=== PATIENT | male | born 1955 | race Caucasian/White ===

== ENCOUNTER 2020-07-03 13:57 | Inpatient (IN) | payer BC ==
[2020-07-03 14:47] LABS: Hemoglobin 14.2 g/dL (14.0-18.0); Mean Corpuscular HGB CONC 33.4 g/dL (32.0-36.0); Mean Corpuscular Hemoglobin 29.5 pg (27.0-31.0); Mean Corpuscular Volume 88.5 fL (78.0-98.0); Mean Platelet Volume 6.6 fL (7.4-10.4); Platelet Count 245 thou/uL (130-400); RBC Distribution Width 13.3 % (11.5-14.5); Red Blood Cell (RBC) Count 4.81 mill/uL (4.70-6.10)
[2020-07-03] MEDS ORDERED: Magnesium 2 GM/50 ML BAG (IN WATER) ONE (14:52)
[2020-07-03 14:54] LABS: Lymphocytes 93 % (21-51); MDiff Complete? YES; Monocytes 1 % (0-10); Neutrophil 6 % (42-75); Platelet Morphology Comment Appears Adequate; RBC Morphology Normal; Reflex for Review?? YES
[2020-07-03] MEDS ORDERED: Vancomycin 1 GM/200 ML BAG ONE (15:02)
[2020-07-03 15:07] LABS: ALT (SGPT) 106 U/L (8-55); AST (SGOT) 137 U/L (5-34); Albumin 3.2 g/dL (3.4-4.8); Alkaline Phosphatase 113 U/L (40-110); Anion Gap 16 mmol/L (10-20); BUN (Urea Nitrogen) 24 mg/dL (8.4-25.7); Bilirubin, Total 1.5 mg/dL (0.2-1.2); CK (CPK) 139 U/L (30-200); Calc. Creatinine Clearance 0 mL/min (70-130); Carbon Dioxide 20 mmol/L (23-31); Chloride 98 mmol/L (98-107); Globulin 2.5 g/dL (2.4-3.5); Glucose 130 mg/dL (80-115); Potassium 5.5 mmol/L (3.5-5.1); Protein, Total 5.7 g/dL (5.8-8.1); Sodium 128 mmol/L (136-145)
[2020-07-03 15:20] LABS: CKMB 0.8 ng/mL (0-6.6)
[2020-07-03] MEDS ORDERED: Dexamethasone 10 MG/ML VIAL ONE (15:22)
[2020-07-03] MEDS ORDERED: Melatonin 3 MG TAB PO PRN (15:34)
[2020-07-03] MEDS ORDERED: Piperacillin/Tazobactam 4.5 GM VIAL ONE (15:54)
[2020-07-03] MEDS ORDERED: Acetaminophen 325 MG TAB PO PRN (16:22)
[2020-07-03] MEDS ORDERED: Electrolyte Replacement Protocol 1 EACH FS ONE (16:25)
[2020-07-03] MEDS ORDERED: Electrolyte Replacement Protocol FS PRN (16:30)
[2020-07-03 16:55] LABS: Magnesium 2.9 mg/dL (1.6-2.6); Phosphorus 2.9 mg/dL (2.3-4.7)
[2020-07-03 19:09] LABS: Troponin I 0.041 ng/mL (< 0.028)
[2020-07-03 19:47] LABS: Legionella Urinary Ag Negative (Negative); Strep pneumo Urine Ag NEGATIVE (NEGATIVE)
[2020-07-03] MEDS: Lactated Ringer's 1,000 ML IV SCH (19:53)
[2020-07-03] MEDS: Ascorbic Acid 500 mg Chewable Tablet PO SCH (19:53)
[2020-07-03] MEDS: Thiamine 100 MG TAB PO SCH (21:02)
[2020-07-03] MEDS: Piperacillin/Tazobactam 3.375 GM in Sodium Chloride 0.9% 100 ML IVPB SCH (21:02)
[2020-07-03] MEDS: Albuterol 200 PUFF (6.7GM INHALER) INH SCH (22:11)
[2020-07-04] MEDS: Ascorbic Acid 500 mg Chewable Tablet PO SCH ×6 (00:21→22:59)
[2020-07-04] MEDS: Albuterol 200 PUFF (6.7GM INHALER) INH SCH ×6 (03:42→22:19)
[2020-07-04] MEDS: Piperacillin/Tazobactam 3.375 GM in Sodium Chloride 0.9% 100 ML IVPB SCH ×4 (03:54→21:39)
[2020-07-04 04:08] LABS: Mean Corpuscular HGB CONC 34.8 g/dL (32.0-36.0); Mean Corpuscular Hemoglobin 31.4 pg (27.0-31.0); Mean Corpuscular Volume 90.1 fL (78.0-98.0); Mean Platelet Volume 7.1 fL (7.4-10.4); Platelet Count 226 thou/uL (130-400); RBC Distribution Width 13.5 % (11.5-14.5); Red Blood Cell (RBC) Count 4.47 mill/uL (4.70-6.10)
[2020-07-04 04:19] LABS: ALT (SGPT) 88 U/L (8-55); AST (SGOT) 92 U/L (5-34); Alkaline Phosphatase 101 U/L (40-110); Anion Gap 12 mmol/L (10-20); BUN (Urea Nitrogen) 19 mg/dL (8.4-25.7); Bilirubin, Total 1.2 mg/dL (0.2-1.2); Calc. Creatinine Clearance 141 mL/min (70-130); Calcium 9.3 mg/dL (7.8-10.44); Carbon Dioxide 26 mmol/L (23-31); Chloride 102 mmol/L (98-107); Globulin 2.4 g/dL (2.4-3.5); Glucose 126 mg/dL (80-115); Potassium 4.5 mmol/L (3.5-5.1); Protein, Total 5.4 g/dL (5.8-8.1); Sodium 135 mmol/L (136-145)
[2020-07-04] MEDS: Lactated Ringer's 1,000 ML IV SCH ×3 (04:40→19:36)
[2020-07-04 04:52] LABS: Lymphocytes 99 % (21-51); MDiff Complete? YES; Neutrophil 1 % (42-75); Platelet Morphology Comment Appears Adequate
[2020-07-04] MEDS: Lisinopril 20 MG TAB PO SCH ×2 (08:56→09:33)
[2020-07-04] MEDS: Thiamine 100 MG TAB PO SCH ×2 (08:56→19:49)
[2020-07-04] MEDS: Zinc Sulfate 220 MG CAP PO SCH (08:56)
[2020-07-04] MEDS ORDERED: Prevnar 13-Val Conj/PF 0.5 ML SYRINGE IM ONE (09:00)
[2020-07-04] MEDS ORDERED: Lisinopril/Hydrochlorothiazide 20 mg/12.5 mg Tablet PO SCH (09:00)
[2020-07-04] MEDS ORDERED: Enoxaparin Sodium 40 MG/0.4 ML SYRINGE SC SCH (09:00)
[2020-07-04] MEDS ORDERED: Metoprolol Tartrate 25 MG TAB PO SCH (09:30)
[2020-07-04] MEDS: Ivermectin 3 MG TAB PO SCH (09:32)
[2020-07-04] MEDS: methylPREDNISolone Sod Succ 1 GM in Sodium Chloride 0.9% 250 ML 250 ML IVPB SCH (09:33)
[2020-07-04] MEDS ORDERED: Metoprolol Tartrate 5 MG/5 ML VIAL ONE (13:55)
[2020-07-04] MEDS ORDERED: Propofol 1,000 MG/100 ML VIAL IV ONE (14:15)
[2020-07-04] MEDS ORDERED: Fentanyl 100 MCG/2 ML VIAL SLOW IVP PRN (14:27)
[2020-07-04] MEDS ORDERED: fentaNYL Citrate/PF 2,000 MCG in Sodium Chloride 0.9% 60 ML IV PRN (14:27)
[2020-07-04] MEDS ORDERED: Midazolam HCl 2 mg/2 ml Vial SLOW IVP PRN (14:28)
[2020-07-04] MEDS ORDERED: Metoprolol Tartrate 5 MG/5 ML VIAL IVP SCH (14:37)
[2020-07-04] MEDS ORDERED: Fentanyl CADD 100 ML IV SCH (15:00)
[2020-07-04 15:44] LABS: Actual Bicarbonate (HCO3a) 18.4 mEq/L (22-28); Base Excess (BEa) -11.1 mEq/L (-2.0 to +3.0); CO2 Tension 55.7 mmHg (35.0-45.0); Calcium, Ionized (arterial) 1.27 mmol/L (1.12-1.30); Carboxyhemoglobin (COHb) 0.4 gm% (0.0-3.0); Hemoglobin (Hb) 14.8 g/dL (14.0-18.0); Potassium - ABG Lab 4.59 mmol/L (3.70-5.30)
[2020-07-04 15:45] LABS: O2 Tension (PaO2), arterial 43.1 mmHg (> 80.0); pH, Arterial 7.14 (7.35-7.45)
[2020-07-04 15:46] LABS: ALV-art Gradient 600.275 mmHg (0-20); Puncture Site RRA
[2020-07-04] MEDS ORDERED: Lorazepam 2 MG/ML VIAL ONE (16:11)
[2020-07-04] MEDS ORDERED: Fentanyl BOLUS 250 ML IVPB PRN (16:30)
[2020-07-04] MEDS ORDERED: Propofol BOLUS 1,000 MG/100 ML VIAL IV PRN (16:30)
[2020-07-04] MEDS ORDERED: DISCONTINUE PREVIOUS NARCOTIC PAIN MEDICATIONS AND BENZODIAZEPINES FS SCH (16:30)
[2020-07-04] MEDS ORDERED: Fentanyl CADD 100 ML ONE (17:05)
[2020-07-04 17:08] LABS: Actual Bicarbonate (HCO3a) 20.7 mEq/L (22-28); Calcium, Ionized (arterial) 1.27 mmol/L (1.12-1.30); Carboxyhemoglobin (COHb) 0.2 gm% (0.0-3.0); Hemoglobin (Hb) 15.4 g/dL (14.0-18.0); Potassium - ABG Lab 4.95 mmol/L (3.70-5.30)
[2020-07-04] MEDS: Vecuronium 10 MG VIAL IV PRN ×2 (17:16→21:56)
[2020-07-04 17:37] LABS: O2 Tension (PaO2), arterial 51.9 mmHg (> 80.0); Puncture Site RRA; pH, Arterial 7.16 (7.35-7.45)
[2020-07-04] MEDS ORDERED: ADMIXTURE FEE CHEMO IV SCH (18:15)
[2020-07-04] MEDS ORDERED: SODIUM CHLORIDE 0.9% IV SCH (18:15)
[2020-07-04] MEDS ORDERED: TOCILIZUMAB IV SCH (18:15)
[2020-07-04] MEDS: Propofol 1,000 MG/100 ML VIAL IV PRN (19:48)
[2020-07-04] MEDS: Enoxaparin Sodium 60 MG/0.6 ML SYRINGE SC SCH (19:49)
[2020-07-04] MEDS: Lorazepam 2 MG/ML VIAL SLOW IVP PRN (19:49)
[2020-07-04] MEDS: Metoprolol Tartrate 25 MG TAB PO SCH (20:28)
[2020-07-04] MEDS ORDERED: Lactated Ringer's 1,000 ML IV SCH (21:30)
[2020-07-05] MEDS: Vecuronium 10 MG VIAL IV PRN ×4 (02:38→17:03)
[2020-07-05] MEDS: Piperacillin/Tazobactam 3.375 GM in Sodium Chloride 0.9% 100 ML IVPB SCH ×4 (03:00→20:59)
[2020-07-05 04:39] LABS: ALT (SGPT) 100 U/L (8-55); AST (SGOT) 121 U/L (5-34); Albumin 2.9 g/dL (3.4-4.8); Alkaline Phosphatase 127 U/L (40-110); Anion Gap 20 mmol/L (10-20); BUN (Urea Nitrogen) 38 mg/dL (8.4-25.7); Bilirubin, Total 1.3 mg/dL (0.2-1.2); Calc. Creatinine Clearance 57 mL/min (70-130); Calcium 8.9 mg/dL (7.8-10.44); Carbon Dioxide 21 mmol/L (23-31); Chloride 99 mmol/L (98-107); Globulin 2.6 g/dL (2.4-3.5); Glucose 325 mg/dL (80-115); Potassium 5.5 mmol/L (3.5-5.1); Protein, Total 5.5 g/dL (5.8-8.1); Sodium 134 mmol/L (136-145)
[2020-07-05 04:42] LABS: Band 3 % (5-11); Hemoglobin 11.8 g/dL (14.0-18.0); Lymphocytes 76 % (21-51); MDiff Complete? YES; Mean Corpuscular HGB CONC 25.5 g/dL (32.0-36.0); Mean Corpuscular Hemoglobin 23.7 pg (27.0-31.0); Mean Corpuscular Volume 93.1 fL (78.0-98.0); Mean Platelet Volume 7.1 fL (7.4-10.4); Monocytes 1 % (0-10); Neutrophil 13 % (42-75); Platelet Count 294 thou/uL (130-400); Platelet Morphology Comment Appears Adequate; RBC Distribution Width 14.1 % (11.5-14.5); RBC Morphology Normal; Reactive Lymphocytes 8 % (0-10); Red Blood Cell (RBC) Count 4.97 mill/uL (4.70-6.10)
[2020-07-05] MEDS ORDERED: Dextrose 50% Abboject 50 ML SYRINGE SLOW IVP PRN (04:46)
[2020-07-05] MEDS ORDERED: Dextrose 5% in Water 1,000 ML IV PRN (04:46)
[2020-07-05] MEDS ORDERED: Insulin Regular 300 UNITS/3 ML VIAL SC PRN (04:46)
[2020-07-05] MEDS: HumaLOG 300 UNITS/3 ML VIAL SC PRN ×3 (04:57→18:14)
[2020-07-05] MEDS: Ascorbic Acid 500 mg Chewable Tablet PO SCH ×2 (05:00→11:13)
[2020-07-05] MEDS: Albuterol 200 PUFF (6.7GM INHALER) INH SCH ×6 (07:24→22:05)
[2020-07-05] MEDS: Zinc Sulfate 220 MG CAP PO SCH (08:00)
[2020-07-05] MEDS ORDERED: Sodium Chloride 0.9% 1,000 ML IV SCH ×2 (08:00→19:15)
[2020-07-05] MEDS: Enoxaparin Sodium 60 MG/0.6 ML SYRINGE SC SCH ×2 (08:01→20:44)
[2020-07-05] MEDS: Thiamine 100 MG TAB PO SCH ×2 (08:01→20:44)
[2020-07-05] MEDS: Ivermectin 3 MG TAB PO SCH (08:01)
[2020-07-05] MEDS ORDERED: Hydroxyurea 500 MG CAP PO SCH ×2 (08:45→09:00)
[2020-07-05] MEDS ORDERED: Cholecalciferol 1,000 UNITS (25 MCG) TAB PO SCH (09:00)
[2020-07-05] MEDS: methylPREDNISolone Sod Succ 1 GM in Sodium Chloride 0.9% 250 ML 250 ML IVPB SCH (09:46)
[2020-07-05] MEDS: Propofol 1,000 MG/100 ML VIAL IV PRN (09:46)
[2020-07-05] MEDS: Metoprolol Tartrate 25 MG TAB PO SCH ×2 (09:46→20:46)
[2020-07-05] MEDS: Fentanyl CADD 100 ML IV SCH (11:13)
[2020-07-05] MEDS: Lactated Ringer's 1,000 ML IV SCH ×2 (11:15→14:24)
[2020-07-05] MEDS: Lisinopril 20 MG TAB PO SCH (12:35)
[2020-07-05] MEDS ORDERED: Metoclopramide HCl 10 MG/2 ML VIAL IVP PRN (12:51)
[2020-07-05] MEDS ORDERED: Pantoprazole 40 MG VIAL IVP SCH ×2 (13:30→21:00)
[2020-07-05] MEDS: Sodium Chloride 0.45% 1,000 ML IV SCH (15:20)
[2020-07-05] MEDS: methylPREDNISolone Sod Succ/PF 125 MG in Sodium Chloride 0.9% 250 ML 250 ML IVPB SCH (15:20)
[2020-07-05] MEDS: Lorazepam 2 MG/ML VIAL SLOW IVP PRN ×2 (15:24→22:57)
[2020-07-05] MEDS ORDERED: Norepinephrine 8 MG/0.9% NS 250 ML IVPB SCH (19:15)
[2020-07-05] MEDS: Colchicine 0.6 MG TAB PO SCH (20:45)
[2020-07-06] MEDS: Lorazepam 2 MG/ML VIAL SLOW IVP PRN ×4 (00:42→08:12)
[2020-07-06] MEDS ORDERED: Sterile Water 10 ML ONE (00:58)
[2020-07-06] MEDS: Vecuronium 10 MG VIAL IV PRN ×4 (01:00→20:41)
[2020-07-06] MEDS: Morphine 2 MG/ML VIAL SLOW IVP PRN ×2 (01:00→12:38)
[2020-07-06] MEDS ORDERED: Fentanyl CADD 100 ML ONE ×2 (02:29→17:20)
[2020-07-06] MEDS: Fentanyl CADD 100 ML IV SCH (02:33)
[2020-07-06] MEDS: Albuterol 200 PUFF (6.7GM INHALER) INH SCH ×6 (02:57→22:25)
[2020-07-06] MEDS: Piperacillin/Tazobactam 3.375 GM in Sodium Chloride 0.9% 100 ML IVPB SCH ×4 (03:56→22:00)
[2020-07-06] MEDS: HumaLOG 300 UNITS/3 ML VIAL SC PRN ×4 (04:15→23:16)
[2020-07-06 04:29] LABS: Hemoglobin 13.4 g/dL (14.0-18.0); Mean Corpuscular HGB CONC 33.4 g/dL (32.0-36.0); Mean Corpuscular Hemoglobin 30.2 pg (27.0-31.0); Mean Corpuscular Volume 90.3 fL (78.0-98.0); Platelet Count 247 thou/uL (130-400); RBC Distribution Width 13.7 % (11.5-14.5); Red Blood Cell (RBC) Count 4.43 mill/uL (4.70-6.10)
[2020-07-06 04:51] LABS: ALT (SGPT) 72 U/L (8-55); AST (SGOT) 65 U/L (5-34); Albumin 2.4 g/dL (3.4-4.8); Alkaline Phosphatase 91 U/L (40-110); Anion Gap 19 mmol/L (10-20); BUN (Urea Nitrogen) 65 mg/dL (8.4-25.7); Bilirubin, Total 0.9 mg/dL (0.2-1.2); Calc. Creatinine Clearance 51 mL/min (70-130); Calcium 7.5 mg/dL (7.8-10.44); Carbon Dioxide 15 mmol/L (23-31); Chloride 104 mmol/L (98-107); Globulin 2.3 g/dL (2.4-3.5); Glucose 226 mg/dL (80-115); Potassium 4.3 mmol/L (3.5-5.1); Protein, Total 4.7 g/dL (5.8-8.1); Sodium 134 mmol/L (136-145)
[2020-07-06 05:06] LABS: Lymphocytes 93 % (21-51); MDiff Complete? YES; Neutrophil 7 % (42-75); Platelet Morphology Comment Appears Adequate
[2020-07-06] MEDS: Pantoprazole 40 MG VIAL IVP SCH (08:12)
[2020-07-06] MEDS: Metoprolol Tartrate 25 MG TAB PO SCH ×2 (08:12→20:39)
[2020-07-06] MEDS: Enoxaparin Sodium 60 MG/0.6 ML SYRINGE SC SCH ×2 (08:12→20:39)
[2020-07-06] MEDS: Thiamine 100 MG TAB PO SCH ×2 (08:13→20:39)
[2020-07-06] MEDS: Colchicine 0.6 MG TAB PO SCH ×2 (08:13→20:39)
[2020-07-06] MEDS: Zinc Sulfate 220 MG CAP PO SCH (08:13)
[2020-07-06] MEDS ORDERED: Hydroxyurea 500 MG CAP PO SCH ×2 (08:45→09:00)
[2020-07-06] MEDS: Propofol 1,000 MG/100 ML VIAL IV PRN ×2 (09:20→20:57)
[2020-07-06] MEDS: Sodium Chloride 0.45% 1,000 ML IV SCH (09:43)
[2020-07-06] MEDS: Lactated Ringer's 1,000 ML IV SCH (14:37)
[2020-07-06] MEDS: methylPREDNISolone Sod Succ/PF 125 MG in Sodium Chloride 0.9% 250 ML 250 ML IVPB SCH (18:33)
[2020-07-07] MEDS: Albuterol 200 PUFF (6.7GM INHALER) INH SCH ×6 (01:08→23:15)
[2020-07-07] MEDS: Vecuronium 10 MG VIAL IV PRN ×5 (01:25→23:20)
[2020-07-07] MEDS: Propofol 1,000 MG/100 ML VIAL IV PRN (02:06)
[2020-07-07] MEDS: Piperacillin/Tazobactam 3.375 GM in Sodium Chloride 0.9% 100 ML IVPB SCH ×4 (04:17→21:26)
[2020-07-07 05:24] LABS: ALT (SGPT) 57 U/L (8-55); AST (SGOT) 46 U/L (5-34); Albumin 2.7 g/dL (3.4-4.8); Alkaline Phosphatase 97 U/L (40-110); Anion Gap 16 mmol/L (10-20); BUN (Urea Nitrogen) 90 mg/dL (8.4-25.7); Bilirubin, Total 0.9 mg/dL (0.2-1.2); Calc. Creatinine Clearance 44 mL/min (70-130); Calcium 8.3 mg/dL (7.8-10.44); Carbon Dioxide 19 mmol/L (23-31); Chloride 106 mmol/L (98-107); Globulin 2.3 g/dL (2.4-3.5); Glucose 232 mg/dL (80-115); Potassium 4.3 mmol/L (3.5-5.1); Sodium 137 mmol/L (136-145)
[2020-07-07 05:25] LABS: Band 1 % (5-11); Hemoglobin 13.8 g/dL (14.0-18.0); Hypochromia SLIGHT = 6-15 cells (100X) (0-5/hpf); Lymphocytes 79 % (21-51); MDiff Complete? YES; Mean Corpuscular HGB CONC 33.1 g/dL (32.0-36.0); Mean Corpuscular Hemoglobin 29.6 pg (27.0-31.0); Mean Corpuscular Volume 89.2 fL (78.0-98.0); Mean Platelet Volume 7.5 fL (7.4-10.4); Monocytes 3 % (0-10); Neutrophil 16 % (42-75); Platelet Count 315 thou/uL (130-400); Platelet Morphology Comment Appears Adequate; RBC Distribution Width 13.6 % (11.5-14.5); Reactive Lymphocytes 1 % (0-10); Red Blood Cell (RBC) Count 4.68 mill/uL (4.70-6.10)
[2020-07-07] MEDS: HumaLOG 300 UNITS/3 ML VIAL SC PRN ×3 (05:47→18:27)
[2020-07-07 08:24] LABS: Actual Bicarbonate (HCO3a) 16.8 mEq/L (22-28); CO2 Tension 29.5 mmHg (35.0-45.0); Carboxyhemoglobin (COHb) 0.3 gm% (0.0-3.0); Hemoglobin (Hb) 14.2 g/dL (14.0-18.0); Potassium - ABG Lab 4.42 mmol/L (3.70-5.30); pH, Arterial 7.37 (7.35-7.45)
[2020-07-07 08:26] LABS: ALV-art Gradient 189.425 mmHg (0-20); O2 Tension (PaO2), arterial 58.9 mmHg (> 80.0); Puncture Site RRA
[2020-07-07] MEDS: Zinc Sulfate 220 MG CAP PO SCH (08:37)
[2020-07-07] MEDS: Thiamine 100 MG TAB PO SCH ×2 (08:37→21:28)
[2020-07-07] MEDS: Colchicine 0.6 MG TAB PO SCH (08:37)
[2020-07-07] MEDS: Metoprolol Tartrate 25 MG TAB PO SCH ×2 (08:37→21:28)
[2020-07-07] MEDS: Enoxaparin Sodium 60 MG/0.6 ML SYRINGE SC SCH ×2 (08:37→21:28)
[2020-07-07] MEDS: Pantoprazole 40 MG VIAL IVP SCH (08:39)
[2020-07-07] MEDS ORDERED: Hydroxyurea 500 MG CAP PO SCH (09:00)
[2020-07-07 09:33] LABS: Hemoglobin A1c 3.1 % (4.0-6.0)
[2020-07-07] MEDS: Hydroxyurea 500 MG CAP PO SCH ×2 (09:52→21:29)
[2020-07-07] MEDS: Diltiazem 125 MG in Sodium Chloride 0.9% 100 ML IVPB SCH ×2 (09:53→20:28)
[2020-07-07] MEDS: Lactated Ringer's 1,000 ML IV SCH ×2 (09:53→15:40)
[2020-07-07] MEDS ORDERED: Metoprolol Tartrate 5 MG/5 ML VIAL IVP SCH (10:30)
[2020-07-07] MEDS: Lorazepam 2 MG/ML VIAL SLOW IVP PRN ×3 (10:36→14:31)
[2020-07-07] MEDS ORDERED: Fentanyl CADD 100 ML ONE (12:17)
[2020-07-07] MEDS: NPH, Human Insulin Isophane 300 UNIT/3 ML VIAL SC SCH ×2 (12:49→21:25)
[2020-07-07 13:24] LABS: Bilirubin Negative (Negative); Blood, Urine 3+ (Negative); Clarity Turbid (Clear); Glucose, Urine (Dipstick) Normal (Negative); Ketone, Urine Negative (Negative); Leukocyte Negative Leu/uL (Negative); Nitrite Negative (Negative); Protein, Urine (Dipstick) 20 mg/dL (Neg-Trace); RBC/HPF Greater than 50 HPF (0-3); Squamous Epithelial None Seen HPF (0-3); Urobilinogen Normal mg/dL (Less than 2); WBC/HPF 0-3 HPF (0-3); pH, Urine 5.5 (5.0-9.0)
[2020-07-07 13:35] LABS: Bacteria/HPF Rare-Few HPF (None Seen)
[2020-07-07 13:41] LABS: Urine Culture Reflex No No
[2020-07-07] MEDS ORDERED: Albumin 25% 25 GM/100 ML BOT IVPB SCH (13:45)
[2020-07-07 14:06] LABS: Creatinine, Urine 62.69 mg/dL (63-166)
[2020-07-07] MEDS: methylPREDNISolone Sod Succ/PF 125 MG in Sodium Chloride 0.9% 250 ML 250 ML IVPB SCH (20:27)
[2020-07-07] MEDS: Fentanyl CADD 100 ML IV SCH (23:20)
[2020-07-08] MEDS: Vecuronium 10 MG VIAL IV PRN ×3 (00:34→23:10)
[2020-07-08] MEDS: HumaLOG 300 UNITS/3 ML VIAL SC PRN ×4 (01:38→22:08)
[2020-07-08] MEDS: Albuterol 200 PUFF (6.7GM INHALER) INH SCH ×6 (02:40→23:12)
[2020-07-08] MEDS: Piperacillin/Tazobactam 3.375 GM in Sodium Chloride 0.9% 100 ML IVPB SCH ×4 (03:22→21:31)
[2020-07-08 04:56] LABS: Mean Corpuscular HGB CONC 27.3 g/dL (32.0-36.0); Mean Corpuscular Hemoglobin 25.1 pg (27.0-31.0); Mean Platelet Volume 7.2 fL (7.4-10.4); Platelet Count 305 thou/uL (130-400); RBC Distribution Width 14.1 % (11.5-14.5); Red Blood Cell (RBC) Count 4.39 mill/uL (4.70-6.10)
[2020-07-08 05:01] LABS: ALT (SGPT) 49 U/L (8-55); AST (SGOT) 49 U/L (5-34); Albumin 3.1 g/dL (3.4-4.8); Alkaline Phosphatase 83 U/L (40-110); Anion Gap 13 mmol/L (10-20); BUN (Urea Nitrogen) 102 mg/dL (8.4-25.7); Bilirubin, Total 0.8 mg/dL (0.2-1.2); Calc. Creatinine Clearance 49 mL/min (70-130); Calcium 8.8 mg/dL (7.8-10.44); Carbon Dioxide 24 mmol/L (23-31); Chloride 107 mmol/L (98-107); Globulin 1.9 g/dL (2.4-3.5); Glucose 204 mg/dL (80-115); Potassium 5.2 mmol/L (3.5-5.1); Sodium 139 mmol/L (136-145)
[2020-07-08 05:28] LABS: Lymphocytes 95 % (21-51); MDiff Complete? YES; Monocytes 1 % (0-10); Neutrophil 4 % (42-75); Platelet Morphology Comment Appears Adequate
[2020-07-08] MEDS: Diltiazem 125 MG in Sodium Chloride 0.9% 100 ML IVPB SCH (09:38)
[2020-07-08] MEDS: Zinc Sulfate 220 MG CAP PO SCH (09:39)
[2020-07-08] MEDS: NPH, Human Insulin Isophane 300 UNIT/3 ML VIAL SC SCH ×2 (09:40→22:37)
[2020-07-08] MEDS: Pantoprazole 40 MG VIAL IVP SCH (09:40)
[2020-07-08] MEDS: Metoprolol Tartrate 25 MG TAB PO SCH ×2 (09:40→21:30)
[2020-07-08] MEDS: Thiamine 100 MG TAB PO SCH ×2 (09:40→21:30)
[2020-07-08] MEDS: Enoxaparin Sodium 60 MG/0.6 ML SYRINGE SC SCH ×2 (09:40→21:29)
[2020-07-08] MEDS: Hydroxyurea 500 MG CAP PO SCH ×2 (09:41→21:31)
[2020-07-08] MEDS: Lactated Ringer's 1,000 ML IV SCH (09:41)
[2020-07-08] MEDS ORDERED: Lactated Ringer's 1,000 ML IV SCH (10:21)
[2020-07-08 10:35] LABS: Actual Bicarbonate (HCO3a) 21.1 mEq/L (22-28); Base Excess (BEa) -9.1 mEq/L (-2.0 to +3.0); Carboxyhemoglobin (COHb) 0.3 gm% (0.0-3.0); Hemoglobin (Hb) 12.9 g/dL (14.0-18.0); Potassium - ABG Lab 5.57 mmol/L (3.70-5.30)
[2020-07-08 10:39] LABS: O2 Tension (PaO2), arterial 55.5 mmHg (> 80.0); pH, Arterial 7.12 (7.35-7.45)
[2020-07-08 10:40] LABS: Puncture Site RRA
[2020-07-08] MEDS ORDERED: Fentanyl CADD 100 ML ONE ×2 (10:43→22:25)
[2020-07-08 11:43] LABS: Reference Lab Name KARIUS
[2020-07-08] MEDS ORDERED: Furosemide 40 MG/4 ML VIAL IVP SCH (15:39)
[2020-07-08] MEDS: methylPREDNISolone Sod Succ/PF 125 MG in Sodium Chloride 0.9% 250 ML 250 ML IVPB SCH (16:00)
[2020-07-08] MEDS: Lorazepam 2 MG/ML VIAL SLOW IVP PRN (22:55)
[2020-07-09] MEDS: Albuterol 200 PUFF (6.7GM INHALER) INH SCH ×6 (03:45→23:45)
[2020-07-09] MEDS: Piperacillin/Tazobactam 3.375 GM in Sodium Chloride 0.9% 100 ML IVPB SCH ×2 (04:56→10:48)
[2020-07-09] MEDS: HumaLOG 300 UNITS/3 ML VIAL SC PRN ×4 (04:56→21:56)
[2020-07-09 05:41] LABS: ALT (SGPT) 57 U/L (8-55); AST (SGOT) 55 U/L (5-34); Albumin 2.7 g/dL (3.4-4.8); Alkaline Phosphatase 79 U/L (40-110); Anion Gap 14 mmol/L (10-20); Bilirubin, Total 0.7 mg/dL (0.2-1.2); CK (CPK) 127 U/L (30-200); Calc. Creatinine Clearance 40 mL/min (70-130); Calcium 8.5 mg/dL (7.8-10.44); Carbon Dioxide 23 mmol/L (23-31); Chloride 110 mmol/L (98-107); Globulin 1.7 g/dL (2.4-3.5); Glucose 194 mg/dL (80-115); Potassium 5.1 mmol/L (3.5-5.1); Protein, Total 4.4 g/dL (5.8-8.1); Sodium 142 mmol/L (136-145)
[2020-07-09 05:53] LABS: BUN (Urea Nitrogen) 121 mg/dL (8.4-25.7)
[2020-07-09 06:02] LABS: Lymphocytes 92 % (21-51); MDiff Complete? YES; Mean Corpuscular HGB CONC 34.3 g/dL (32.0-36.0); Mean Corpuscular Volume 90.4 fL (78.0-98.0); Mean Platelet Volume 7.7 fL (7.4-10.4); Neutrophil 8 % (42-75); Platelet Count 249 thou/uL (130-400); Red Blood Cell (RBC) Count 3.86 mill/uL (4.70-6.10)
[2020-07-09] MEDS: Hydroxyurea 500 MG CAP PO SCH (08:12)
[2020-07-09] MEDS: Metoprolol Tartrate 25 MG TAB PO SCH ×2 (08:13→21:35)
[2020-07-09] MEDS: Sodium Chloride 0.9% (PF) 10 ML VIAL FS PRN (08:13)
[2020-07-09] MEDS: Pantoprazole 40 MG VIAL IVP SCH (08:13)
[2020-07-09] MEDS: Enoxaparin Sodium 60 MG/0.6 ML SYRINGE SC SCH (08:13)
[2020-07-09] MEDS: Zinc Sulfate 220 MG CAP PO SCH (08:13)
[2020-07-09] MEDS: Thiamine 100 MG TAB PO SCH ×2 (08:13→21:36)
[2020-07-09] MEDS: NPH, Human Insulin Isophane 300 UNIT/3 ML VIAL SC SCH ×2 (08:14→21:38)
[2020-07-09] MEDS: Vecuronium 10 MG VIAL IV PRN ×3 (08:19→19:14)
[2020-07-09] MEDS ORDERED: Fentanyl CADD 100 ML ONE ×2 (09:05→19:05)
[2020-07-09] MEDS: Morphine 2 MG/ML VIAL SLOW IVP PRN (10:48)
[2020-07-09] MEDS: Propofol 1,000 MG/100 ML VIAL IV PRN ×2 (11:51→19:14)
[2020-07-09] MEDS: Lorazepam 2 MG/ML VIAL SLOW IVP PRN (11:52)
[2020-07-09] MEDS: Piperacillin/Tazobactam 2.25 GM in Sodium Chloride 0.9% 100 ML IVPB SCH ×2 (16:08→21:36)
[2020-07-09] MEDS: methylPREDNISolone Sod Succ/PF 125 MG in Sodium Chloride 0.9% 250 ML 250 ML IVPB SCH (19:08)
[2020-07-10] MEDS: Lorazepam 2 MG/ML VIAL SLOW IVP PRN ×3 (00:19→07:20)
[2020-07-10] MEDS: Piperacillin/Tazobactam 2.25 GM in Sodium Chloride 0.9% 100 ML IVPB SCH ×4 (03:41→21:38)
[2020-07-10] MEDS: Albuterol 200 PUFF (6.7GM INHALER) INH SCH ×6 (03:47→22:34)
[2020-07-10] MEDS: HumaLOG 300 UNITS/3 ML VIAL SC PRN ×3 (04:07→16:04)
[2020-07-10] MEDS: Vecuronium 10 MG VIAL IV PRN ×3 (04:46→15:03)
[2020-07-10] MEDS ORDERED: Fentanyl CADD 100 ML ONE ×3 (04:55→23:43)
[2020-07-10 05:19] LABS: ALT (SGPT) 52 U/L (8-55); AST (SGOT) 40 U/L (5-34); Albumin 2.6 g/dL (3.4-4.8); Alkaline Phosphatase 79 U/L (40-110); Anion Gap 14 mmol/L (10-20); Bilirubin, Total 0.7 mg/dL (0.2-1.2); Calc. Creatinine Clearance 0 mL/min (70-130); Calcium 8.7 mg/dL (7.8-10.44); Carbon Dioxide 23 mmol/L (23-31); Chloride 111 mmol/L (98-107); Globulin 1.7 g/dL (2.4-3.5); Glucose 196 mg/dL (80-115); Potassium 4.7 mmol/L (3.5-5.1); Protein, Total 4.3 g/dL (5.8-8.1); Sodium 143 mmol/L (136-145)
[2020-07-10 05:30] LABS: BUN (Urea Nitrogen) 138 mg/dL (8.4-25.7)
[2020-07-10 05:38] LABS: Hemoglobin 10.8 g/dL (14.0-18.0); Lymphocytes 93 % (21-51); MDiff Complete? YES; Mean Corpuscular HGB CONC 32.9 g/dL (32.0-36.0); Mean Corpuscular Hemoglobin 29.4 pg (27.0-31.0); Mean Corpuscular Volume 89.5 fL (78.0-98.0); Mean Platelet Volume 7.8 fL (7.4-10.4); Neutrophil 7 % (42-75); Platelet Count 203 thou/uL (130-400); RBC Distribution Width 13.4 % (11.5-14.5); Red Blood Cell (RBC) Count 3.67 mill/uL (4.70-6.10)
[2020-07-10] MEDS: Sodium Chloride 0.9% (PF) 10 ML VIAL FS PRN (08:06)
[2020-07-10] MEDS: Pantoprazole 40 MG VIAL IVP SCH (08:06)
[2020-07-10] MEDS: Enoxaparin Sodium 60 MG/0.6 ML SYRINGE SC SCH (08:06)
[2020-07-10] MEDS: Hydroxyurea 500 MG CAP PO SCH (08:07)
[2020-07-10] MEDS: Thiamine 100 MG TAB PO SCH ×2 (08:07→19:52)
[2020-07-10] MEDS: Metoprolol Tartrate 25 MG TAB PO SCH ×3 (08:07→20:30)
[2020-07-10] MEDS: Lorazepam 1 MG TAB PER TUBE SCH ×5 (08:07→23:56)
[2020-07-10] MEDS: NPH, Human Insulin Isophane 300 UNIT/3 ML VIAL SC SCH ×2 (08:09→19:52)
[2020-07-10] MEDS: Zinc Sulfate 220 MG CAP PO SCH (08:30)
[2020-07-10] MEDS: Propofol 1,000 MG/100 ML VIAL IV PRN ×2 (16:51→22:26)
[2020-07-10] MEDS: methylPREDNISolone Sod Succ/PF 125 MG in Sodium Chloride 0.9% 250 ML 250 ML IVPB SCH (19:53)
[2020-07-10] MEDS: Fentanyl CADD 100 ML IV SCH (23:56)
[2020-07-11] MEDS: Propofol 1,000 MG/100 ML VIAL IV PRN ×4 (01:39→14:30)
[2020-07-11] MEDS: Lorazepam 2 MG/ML VIAL SLOW IVP PRN (02:31)
[2020-07-11] MEDS: Vecuronium 10 MG VIAL IV PRN ×3 (02:31→15:24)
[2020-07-11] MEDS: Albuterol 200 PUFF (6.7GM INHALER) INH SCH ×6 (03:03→22:51)
[2020-07-11] MEDS: Piperacillin/Tazobactam 2.25 GM in Sodium Chloride 0.9% 100 ML IVPB SCH ×4 (04:15→21:15)
[2020-07-11] MEDS: Lorazepam 1 MG TAB PER TUBE SCH ×5 (04:15→21:04)
[2020-07-11 05:35] LABS: Hemoglobin 10.1 g/dL (14.0-18.0); Mean Corpuscular HGB CONC 32.6 g/dL (32.0-36.0); Mean Corpuscular Hemoglobin 29.7 pg (27.0-31.0); Mean Corpuscular Volume 90.9 fL (78.0-98.0); Mean Platelet Volume 8.1 fL (7.4-10.4); Platelet Count 188 thou/uL (130-400); RBC Distribution Width 13.3 % (11.5-14.5); Red Blood Cell (RBC) Count 3.42 mill/uL (4.70-6.10)
[2020-07-11 05:48] LABS: ALT (SGPT) 42 U/L (8-55); AST (SGOT) 26 U/L (5-34); Albumin 2.6 g/dL (3.4-4.8); Alkaline Phosphatase 76 U/L (40-110); Anion Gap 13 mmol/L (10-20); Bilirubin, Total 0.6 mg/dL (0.2-1.2); Calc. Creatinine Clearance 0 mL/min (70-130); Calcium 8.9 mg/dL (7.8-10.44); Carbon Dioxide 23 mmol/L (23-31); Chloride 114 mmol/L (98-107); Globulin 1.5 g/dL (2.4-3.5); Glucose 205 mg/dL (80-115); Potassium 5.2 mmol/L (3.5-5.1); Protein, Total 4.1 g/dL (5.8-8.1); Sodium 145 mmol/L (136-145)
[2020-07-11 05:59] LABS: BUN (Urea Nitrogen) 162 mg/dL (8.4-25.7)
[2020-07-11 06:27] LABS: Phosphorus 6.5 mg/dL (2.3-4.7)
[2020-07-11 06:29] LABS: Uric Acid 10.3 mg/dL (3.5-7.2)
[2020-07-11 07:13] LABS: Actual Bicarbonate (HCO3a) 19.2 mEq/L (22-28); Base Excess (BEa) -6.6 mEq/L (-2.0 to +3.0); CO2 Tension 39.7 mmHg (35.0-45.0); Calcium, Ionized (arterial) 1.33 mmol/L (1.12-1.30); Hemoglobin (Hb) 11.2 g/dL (14.0-18.0); O2 Tension (PaO2), arterial 75.2 mmHg (> 80.0); Potassium - ABG Lab 4.91 mmol/L (3.70-5.30)
[2020-07-11 07:30] LABS: Puncture Site RRA
[2020-07-11 07:31] LABS: ALV-art Gradient 338.625 mmHg (0-20)
[2020-07-11 07:36] LABS: Band 1 % (5-11); Lymphocytes 91 % (21-51); MDiff Complete? YES; Neutrophil 8 % (42-75)
[2020-07-11] MEDS: Enoxaparin Sodium 60 MG/0.6 ML SYRINGE SC SCH (08:12)
[2020-07-11] MEDS: Sodium Chloride 0.9% (PF) 10 ML VIAL FS PRN (08:12)
[2020-07-11] MEDS: Pantoprazole 40 MG VIAL IVP SCH (08:12)
[2020-07-11] MEDS: NPH, Human Insulin Isophane 300 UNIT/3 ML VIAL SC SCH ×2 (08:13→21:05)
[2020-07-11] MEDS: Zinc Sulfate 220 MG CAP PO SCH (08:14)
[2020-07-11] MEDS: Metoprolol Tartrate 25 MG TAB PO SCH ×2 (08:14→20:30)
[2020-07-11] MEDS: Thiamine 100 MG TAB PO SCH ×2 (08:14→21:04)
[2020-07-11] MEDS: Hydroxyurea 500 MG CAP PO SCH (08:14)
[2020-07-11] MEDS ORDERED: Fentanyl CADD 100 ML ONE ×2 (09:38→19:54)
[2020-07-11] MEDS: HumaLOG 300 UNITS/3 ML VIAL SC PRN ×2 (10:01→16:20)
[2020-07-11] MEDS ORDERED: Heparin 10,000 UNITS/ 10 ML VIAL ONE (11:00)
[2020-07-11 13:39] LABS: Creatinine, Urine 57.19 mg/dL (63-166)
[2020-07-11 15:52] LABS: HBSAg Index 0.16 S/CO (0-0.99); Hep B Surf Ag Non-Reactive S/CO (NonReactive)
[2020-07-11] MEDS: methylPREDNISolone Sod Succ/PF 125 MG in Sodium Chloride 0.9% 250 ML 250 ML IVPB SCH (19:57)
[2020-07-12] MEDS: Propofol 1,000 MG/100 ML VIAL IV PRN ×6 (00:29→22:58)
[2020-07-12] MEDS: Lorazepam 1 MG TAB PER TUBE SCH ×7 (00:29→23:34)
[2020-07-12] MEDS: Vecuronium 10 MG VIAL IV PRN ×3 (01:50→06:49)
[2020-07-12] MEDS: Albuterol 200 PUFF (6.7GM INHALER) INH SCH ×6 (03:06→23:17)
[2020-07-12] MEDS: Piperacillin/Tazobactam 2.25 GM in Sodium Chloride 0.9% 100 ML IVPB SCH ×4 (03:22→21:23)
[2020-07-12 04:28] LABS: ALT (SGPT) 38 U/L (8-55); AST (SGOT) 23 U/L (5-34); Albumin 2.6 g/dL (3.4-4.8); Alkaline Phosphatase 66 U/L (40-110); Anion Gap 16 mmol/L (10-20); Bilirubin, Total 0.7 mg/dL (0.2-1.2); Calc. Creatinine Clearance 0 mL/min (70-130); Calcium 8.8 mg/dL (7.8-10.44); Carbon Dioxide 23 mmol/L (23-31); Chloride 108 mmol/L (98-107); Globulin 1.7 g/dL (2.4-3.5); Glucose 190 mg/dL (80-115); Potassium 4.9 mmol/L (3.5-5.1); Protein, Total 4.3 g/dL (5.8-8.1); Sodium 142 mmol/L (136-145)
[2020-07-12 04:40] LABS: BUN (Urea Nitrogen) 143 mg/dL (8.4-25.7)
[2020-07-12] MEDS: Lorazepam 2 MG/ML VIAL SLOW IVP PRN ×2 (04:48→16:32)
[2020-07-12 04:50] LABS: Lymphocytes 91 % (21-51); MDiff Complete? YES; Mean Corpuscular HGB CONC 32.1 g/dL (32.0-36.0); Mean Corpuscular Hemoglobin 28.8 pg (27.0-31.0); Mean Corpuscular Volume 89.7 fL (78.0-98.0); Mean Platelet Volume 8.1 fL (7.4-10.4); Neutrophil 9 % (42-75); Platelet Count 182 thou/uL (130-400); RBC Distribution Width 13.2 % (11.5-14.5); Red Blood Cell (RBC) Count 3.45 mill/uL (4.70-6.10)
[2020-07-12] MEDS ORDERED: Fentanyl CADD 100 ML ONE ×2 (05:12→15:00)
[2020-07-12] MEDS: Fentanyl CADD 100 ML IV SCH (05:14)
[2020-07-12] MEDS: HumaLOG 300 UNITS/3 ML VIAL SC PRN ×2 (06:12→16:46)
[2020-07-12 07:49] LABS: Actual Bicarbonate (HCO3a) 19.6 mEq/L (22-28); Base Excess (BEa) -5.4 mEq/L (-2.0 to +3.0); CO2 Tension 36.4 mmHg (35.0-45.0); Calcium, Ionized (arterial) 1.28 mmol/L (1.12-1.30); Carboxyhemoglobin (COHb) 0.6 gm% (0.0-3.0); Hemoglobin (Hb) 11.1 g/dL (14.0-18.0); O2 Tension (PaO2), arterial 74.1 mmHg (> 80.0); Potassium - ABG Lab 4.79 mmol/L (3.70-5.30); pH, Arterial 7.35 (7.35-7.45)
[2020-07-12 07:52] LABS: Puncture Site RBA
[2020-07-12] MEDS ORDERED: Sodium Bicarb 50 MEQ/50 ML Abboject 8.4% SYRINGE IVP SCH (09:45)
[2020-07-12] MEDS: Hydroxyurea 500 MG CAP PO SCH (10:30)
[2020-07-12] MEDS ORDERED: Enoxaparin Sodium 60 MG/0.6 ML SYRINGE SC SCH (10:30)
[2020-07-12] MEDS: Metoprolol Tartrate 25 MG TAB PO SCH ×2 (10:31→10:41)
[2020-07-12] MEDS: Zinc Sulfate 220 MG CAP PO SCH (10:31)
[2020-07-12] MEDS: Thiamine 100 MG TAB PO SCH ×2 (10:31→21:21)
[2020-07-12] MEDS: Pantoprazole 40 MG VIAL IVP SCH (10:32)
[2020-07-12] MEDS: NPH, Human Insulin Isophane 300 UNIT/3 ML VIAL SC SCH ×2 (10:32→21:21)
[2020-07-12] MEDS ORDERED: Heparin 10,000 UNITS/ 10 ML VIAL ONE (10:35)
[2020-07-12] MEDS ORDERED: Albumin 5% 250 ML ONE ×2 (10:37→11:41)
[2020-07-12] MEDS: Enoxaparin Sodium 60 MG/0.6 ML SYRINGE SC SCH (10:40)
[2020-07-12 14:02] LABS: Phosphorus 6.2 mg/dL (2.3-4.7); Uric Acid 8.3 mg/dL (3.5-7.2)
[2020-07-12] MEDS: Sodium Chloride 0.45% 1,000 ML IV SCH ×2 (16:30→21:21)
[2020-07-12] MEDS: methylPREDNISolone Sod Succ/PF 125 MG in Sodium Chloride 0.9% 250 ML 250 ML IVPB SCH (23:26)
[2020-07-13] MEDS ORDERED: Fentanyl CADD 100 ML ONE ×3 (01:10→20:46)
[2020-07-13] MEDS: Fentanyl CADD 100 ML IV SCH ×3 (01:13→20:53)
[2020-07-13] MEDS: Albuterol 200 PUFF (6.7GM INHALER) INH SCH ×6 (02:38→22:06)
[2020-07-13] MEDS: Lorazepam 1 MG TAB PER TUBE SCH ×5 (03:47→21:32)
[2020-07-13] MEDS: Piperacillin/Tazobactam 2.25 GM in Sodium Chloride 0.9% 100 ML IVPB SCH ×2 (03:47→09:12)
[2020-07-13] MEDS: Propofol 1,000 MG/100 ML VIAL IV PRN ×5 (03:52→21:29)
[2020-07-13 04:35] LABS: Mean Corpuscular HGB CONC 31.2 g/dL (32.0-36.0); Mean Corpuscular Hemoglobin 27.7 pg (27.0-31.0); Mean Corpuscular Volume 88.9 fL (78.0-98.0); Platelet Count 147 thou/uL (130-400); RBC Distribution Width 12.7 % (11.5-14.5); Red Blood Cell (RBC) Count 3.23 mill/uL (4.70-6.10)
[2020-07-13 04:48] LABS: ALT (SGPT) 30 U/L (8-55); AST (SGOT) 21 U/L (5-34); Albumin 2.9 g/dL (3.4-4.8); Alkaline Phosphatase 55 U/L (40-110); Anion Gap 15 mmol/L (10-20); Calc. Creatinine Clearance 57 mL/min (70-130); Calcium 8.5 mg/dL (7.8-10.44); Carbon Dioxide 26 mmol/L (23-31); Chloride 104 mmol/L (98-107); Globulin 1.4 g/dL (2.4-3.5); Glucose 129 mg/dL (80-115); Potassium 4.2 mmol/L (3.5-5.1); Protein, Total 4.3 g/dL (5.8-8.1); Sodium 141 mmol/L (136-145); Uric Acid 6.3 mg/dL (3.5-7.2)
[2020-07-13 05:01] LABS: Lymphocytes 90 % (21-51); MDiff Complete? YES; Monocytes 2 % (0-10); Neutrophil 8 % (42-75)
[2020-07-13 05:02] LABS: BUN (Urea Nitrogen) 119 mg/dL (8.4-25.7)
[2020-07-13] MEDS: Sodium Chloride 0.45% 1,000 ML IV SCH ×2 (06:39→16:57)
[2020-07-13 06:56] LABS: Actual Bicarbonate (HCO3a) 24.9 mEq/L (22-28); Base Excess (BEa) 1.4 mEq/L (-2.0 to +3.0); CO2 Tension 35.2 mmHg (35.0-45.0); Calcium, Ionized (arterial) 1.19 mmol/L (1.12-1.30); Carboxyhemoglobin (COHb) 0.3 gm% (0.0-3.0); Hemoglobin (Hb) 9.8 g/dL (14.0-18.0); O2 Tension (PaO2), arterial 84.3 mmHg (> 80.0); Potassium - ABG Lab 4.11 mmol/L (3.70-5.30); pH, Arterial 7.47 (7.35-7.45)
[2020-07-13 07:00] LABS: Puncture Site RRA
[2020-07-13] MEDS ORDERED: Heparin 10,000 UNITS/ 10 ML VIAL ONE (08:45)
[2020-07-13] MEDS ORDERED: Albumin 5% 500 ML ONE ×2 (08:50)
[2020-07-13] MEDS: Pantoprazole 40 MG VIAL IVP SCH (08:54)
[2020-07-13] MEDS: Zinc Sulfate 220 MG CAP PO SCH (08:54)
[2020-07-13] MEDS: Thiamine 100 MG TAB PO SCH ×2 (08:54→21:29)
[2020-07-13] MEDS: Hydroxyurea 500 MG CAP PO SCH (08:55)
[2020-07-13] MEDS: Enoxaparin Sodium 60 MG/0.6 ML SYRINGE SC SCH (08:55)
[2020-07-13] MEDS: Metoprolol Tartrate 25 MG TAB PO SCH ×2 (08:57→23:50)
[2020-07-13] MEDS: NPH, Human Insulin Isophane 300 UNIT/3 ML VIAL SC SCH ×2 (08:58→23:50)
[2020-07-13] MEDS ORDERED: Albumin 25% 25 GM/100 ML BOT IVPB SCH (11:15)
[2020-07-13] MEDS: Piperacillin/Tazobactam 3.375 GM in Sodium Chloride 0.9% 100 ML IVPB SCH ×2 (17:00→21:27)
[2020-07-13] MEDS: Vecuronium 10 MG VIAL IV PRN (20:34)
[2020-07-13] MEDS: methylPREDNISolone Sod Succ/PF 125 MG in Sodium Chloride 0.9% 250 ML 250 ML IVPB SCH (22:43)
[2020-07-14] MEDS: Lorazepam 1 MG TAB PER TUBE SCH ×7 (00:33→19:34)
[2020-07-14] MEDS: Albuterol 200 PUFF (6.7GM INHALER) INH SCH ×6 (02:10→22:49)
[2020-07-14] MEDS: Vecuronium 10 MG VIAL IV PRN ×2 (04:50→16:36)
[2020-07-14 04:55] LABS: ALT (SGPT) 24 U/L (8-55); AST (SGOT) 23 U/L (5-34); Albumin 3.2 g/dL (3.4-4.8); Alkaline Phosphatase 56 U/L (40-110); Anion Gap 14 mmol/L (10-20); BUN (Urea Nitrogen) 82 mg/dL (8.4-25.7); Bilirubin, Total 1.3 mg/dL (0.2-1.2); Calc. Creatinine Clearance 81 mL/min (70-130); Calcium 8.9 mg/dL (7.8-10.44); Carbon Dioxide 26 mmol/L (23-31); Chloride 103 mmol/L (98-107); Globulin 1.4 g/dL (2.4-3.5); Glucose 143 mg/dL (80-115); Potassium 3.8 mmol/L (3.5-5.1); Protein, Total 4.6 g/dL (5.8-8.1); Sodium 139 mmol/L (136-145)
[2020-07-14 05:20] LABS: Eosinophils 1 % (0-10); Hemoglobin 9.2 g/dL (14.0-18.0); Lymphocytes 92 % (21-51); MDiff Complete? YES; Mean Corpuscular HGB CONC 32.2 g/dL (32.0-36.0); Mean Corpuscular Hemoglobin 28.4 pg (27.0-31.0); Mean Corpuscular Volume 88.3 fL (78.0-98.0); Monocytes 3 % (0-10); Neutrophil 4 % (42-75); Platelet Count 122 thou/uL (130-400); RBC Distribution Width 12.4 % (11.5-14.5); Red Blood Cell (RBC) Count 3.23 mill/uL (4.70-6.10); White Blood Cell (WBC) Count 95.8 thou/uL (4.8-10.8)
[2020-07-14] MEDS: Piperacillin/Tazobactam 3.375 GM in Sodium Chloride 0.9% 100 ML IVPB SCH ×4 (05:28→23:01)
[2020-07-14] MEDS ORDERED: Fentanyl CADD 100 ML ONE ×2 (06:42→18:39)
[2020-07-14] MEDS: Fentanyl CADD 100 ML IV SCH (07:02)
[2020-07-14 08:29] LABS: Actual Bicarbonate (HCO3a) 23.6 mEq/L (22-28); Base Excess (BEa) 2.7 mEq/L (-2.0 to +3.0); Calcium, Ionized (arterial) 1.19 mmol/L (1.12-1.30); Carboxyhemoglobin (COHb) 0.3 gm% (0.0-3.0); Hemoglobin (Hb) 10.5 g/dL (14.0-18.0); O2 Tension (PaO2), arterial 84.5 mmHg (> 80.0); Potassium - ABG Lab 3.72 mmol/L (3.70-5.30)
[2020-07-14] MEDS ORDERED: Heparin 10,000 UNITS/ 10 ML VIAL ONE (08:34)
[2020-07-14] MEDS: Zinc Sulfate 220 MG CAP PO SCH (08:42)
[2020-07-14] MEDS: Enoxaparin Sodium 60 MG/0.6 ML SYRINGE SC SCH (08:42)
[2020-07-14] MEDS: Pantoprazole 40 MG GRANULES PACKET PER TUBE SCH (08:42)
[2020-07-14] MEDS: Hydroxyurea 500 MG CAP PO SCH (08:42)
[2020-07-14] MEDS: Colchicine 0.6 MG TAB PO SCH (08:42)
[2020-07-14] MEDS: Thiamine 100 MG TAB PO SCH ×2 (08:42→21:17)
[2020-07-14 08:52] LABS: Puncture Site RRA; pH, Arterial 7.59 (7.35-7.45)
[2020-07-14] MEDS: NPH, Human Insulin Isophane 300 UNIT/3 ML VIAL SC SCH ×2 (10:24→21:20)
[2020-07-14 16:16] LABS: Actual Bicarbonate (HCO3a) 23.5 mEq/L (22-28); Base Excess (BEa) -1.4 mEq/L (-2.0 to +3.0); CO2 Tension 40.5 mmHg (35.0-45.0); Calcium, Ionized (arterial) 1.24 mmol/L (1.12-1.30); Carboxyhemoglobin (COHb) 0.6 gm% (0.0-3.0); Hemoglobin (Hb) 12.1 g/dL (14.0-18.0); O2 Tension (PaO2), arterial 188.4 mmHg (> 80.0); Potassium - ABG Lab 4.01 mmol/L (3.70-5.30); pH, Arterial 7.38 (7.35-7.45)
[2020-07-14 16:19] LABS: ALV-art Gradient 473.975 mmHg (0-20); Puncture Site RRA
[2020-07-14 18:29] LABS: ALT (SGPT) 27 U/L (8-55); AST (SGOT) 39 U/L (5-34); Albumin 3.5 g/dL (3.4-4.8); Alkaline Phosphatase 83 U/L (40-110); Anion Gap 14 mmol/L (10-20); BUN (Urea Nitrogen) 81 mg/dL (8.4-25.7); Calc. Creatinine Clearance 79 mL/min (70-130); Calcium 9.4 mg/dL (7.8-10.44); Carbon Dioxide 28 mmol/L (23-31); Chloride 105 mmol/L (98-107); Globulin 1.6 g/dL (2.4-3.5); Glucose 150 mg/dL (80-115); Potassium 4.2 mmol/L (3.5-5.1); Protein, Total 5.1 g/dL (5.8-8.1); Sodium 143 mmol/L (136-145)
[2020-07-14 18:50] LABS: CKMB 1.9 ng/mL (0-6.6)
[2020-07-14] MEDS ORDERED: Norepinephrine 8 MG/0.9% NS 250 ML IVPB PRN (19:26)
[2020-07-14] MEDS: methylPREDNISolone Sod Succ/PF 125 MG in Sodium Chloride 0.9% 250 ML 250 ML IVPB SCH (23:55)
[2020-07-15] MEDS: Lorazepam 1 MG TAB PER TUBE SCH ×7 (00:04→23:45)
[2020-07-15] MEDS: Albuterol 200 PUFF (6.7GM INHALER) INH SCH ×6 (03:13→21:39)
[2020-07-15 05:10] LABS: ALT (SGPT) 29 U/L (8-55); AST (SGOT) 44 U/L (5-34); Albumin 3.5 g/dL (3.4-4.8); Alkaline Phosphatase 82 U/L (40-110); Anion Gap 12 mmol/L (10-20); BUN (Urea Nitrogen) 53 mg/dL (8.4-25.7); Bilirubin, Total 1.5 mg/dL (0.2-1.2); Calc. Creatinine Clearance 102 mL/min (70-130); Calcium 9.3 mg/dL (7.8-10.44); Carbon Dioxide 30 mmol/L (23-31); Chloride 104 mmol/L (98-107); Globulin 1.6 g/dL (2.4-3.5); Glucose 118 mg/dL (80-115); Potassium 3.9 mmol/L (3.5-5.1); Protein, Total 5.1 g/dL (5.8-8.1); Sodium 142 mmol/L (136-145)
[2020-07-15 05:12] LABS: Hemoglobin 10.8 g/dL (14.0-18.0); Mean Corpuscular HGB CONC 32.4 g/dL (32.0-36.0); Mean Corpuscular Hemoglobin 29.1 pg (27.0-31.0); Mean Corpuscular Volume 89.8 fL (78.0-98.0); Mean Platelet Volume 7.3 fL (7.4-10.4); Platelet Count 161 thou/uL (130-400); RBC Distribution Width 12.8 % (11.5-14.5)
[2020-07-15] MEDS: Piperacillin/Tazobactam 3.375 GM in Sodium Chloride 0.9% 100 ML IVPB SCH ×4 (05:16→20:46)
[2020-07-15 06:39] LABS: Band 1 % (5-11); Lymphocytes 86 % (21-51); MDiff Complete? YES; Monocytes 1 % (0-10); Neutrophil 12 % (42-75); Platelet Morphology Comment Appears Adequate
[2020-07-15] MEDS ORDERED: Furosemide 100 MG/10 ML VIAL SLOW IVP SCH (06:45)
[2020-07-15] MEDS ORDERED: Fentanyl CADD 100 ML ONE ×2 (06:55→20:15)
[2020-07-15 07:07] LABS: Actual Bicarbonate (HCO3a) 25.9 mEq/L (22-28); Base Excess (BEa) 2.2 mEq/L (-2.0 to +3.0); Calcium, Ionized (arterial) 1.24 mmol/L (1.12-1.30); Carboxyhemoglobin (COHb) 0.3 gm% (0.0-3.0); Hemoglobin (Hb) 11.1 g/dL (14.0-18.0); O2 Tension (PaO2), arterial 98.6 mmHg (> 80.0); Potassium - ABG Lab 3.78 mmol/L (3.70-5.30); pH, Arterial 7.46 (7.35-7.45)
[2020-07-15 07:09] LABS: Puncture Site RBA
[2020-07-15] MEDS: Furosemide 100 MG in Sodium Chloride 0.9% 90 ML IVPB SCH ×2 (07:23→16:15)
[2020-07-15 10:20] LABS: Phosphorus 3.9 mg/dL (2.3-4.7); Uric Acid 2.7 mg/dL (3.5-7.2)
[2020-07-15] MEDS: NPH, Human Insulin Isophane 300 UNIT/3 ML VIAL SC SCH ×2 (10:44→21:55)
[2020-07-15] MEDS: Enoxaparin Sodium 60 MG/0.6 ML SYRINGE SC SCH (10:45)
[2020-07-15] MEDS: Pantoprazole 40 MG GRANULES PACKET PER TUBE SCH (10:46)
[2020-07-15] MEDS: Colchicine 0.6 MG TAB PO SCH (10:46)
[2020-07-15] MEDS: Thiamine 100 MG TAB PO SCH ×2 (10:46→20:48)
[2020-07-15] MEDS: Metoprolol Tartrate 25 MG TAB PO SCH ×2 (10:46→20:48)
[2020-07-15] MEDS: Hydroxyurea 500 MG CAP PO SCH (10:46)
[2020-07-15] MEDS: Zinc Sulfate 220 MG CAP PO SCH (10:46)
[2020-07-15] MEDS: Fentanyl CADD 100 ML IV SCH (20:17)
[2020-07-15] MEDS: Vecuronium 10 MG VIAL IV PRN ×4 (20:43→23:45)
[2020-07-15] MEDS: methylPREDNISolone Sod Succ/PF 125 MG in Sodium Chloride 0.9% 250 ML 250 ML IVPB SCH (21:48)
[2020-07-16] MEDS: Vecuronium 10 MG VIAL IV PRN ×5 (01:23→17:40)
[2020-07-16] MEDS: Furosemide 100 MG in Sodium Chloride 0.9% 90 ML IVPB SCH ×3 (01:52→22:11)
[2020-07-16] MEDS: Albuterol 200 PUFF (6.7GM INHALER) INH SCH ×6 (01:52→22:44)
[2020-07-16] MEDS: Piperacillin/Tazobactam 3.375 GM in Sodium Chloride 0.9% 100 ML IVPB SCH ×4 (02:43→22:13)
[2020-07-16] MEDS: Lorazepam 1 MG TAB PER TUBE SCH ×5 (02:43→22:13)
[2020-07-16 04:24] LABS: Mean Corpuscular HGB CONC 31.9 g/dL (32.0-36.0); Mean Corpuscular Hemoglobin 28.6 pg (27.0-31.0); Mean Corpuscular Volume 89.7 fL (78.0-98.0); Mean Platelet Volume 7.7 fL (7.4-10.4); Platelet Count 124 thou/uL (130-400); RBC Distribution Width 12.8 % (11.5-14.5); Red Blood Cell (RBC) Count 3.51 mill/uL (4.70-6.10)
[2020-07-16 04:25] LABS: ALT (SGPT) 32 U/L (8-55); AST (SGOT) 36 U/L (5-34); Albumin 3.3 g/dL (3.4-4.8); Alkaline Phosphatase 80 U/L (40-110); Anion Gap 15 mmol/L (10-20); BUN (Urea Nitrogen) 69 mg/dL (8.4-25.7); Bilirubin, Total 1.8 mg/dL (0.2-1.2); Calc. Creatinine Clearance 79 mL/min (70-130); Carbon Dioxide 29 mmol/L (23-31); Chloride 102 mmol/L (98-107); Globulin 1.7 g/dL (2.4-3.5); Glucose 130 mg/dL (80-115); Hypochromia SLIGHT = 6-15 cells (100X) (0-5/hpf); Lymphocytes 71 % (21-51); MDiff Complete? YES; Monocytes 1 % (0-10); Neutrophil 28 % (42-75); Platelet Morphology Comment Appears Adequate; Potassium 3.3 mmol/L (3.5-5.1); Sodium 143 mmol/L (136-145)
[2020-07-16] MEDS ORDERED: Fentanyl CADD 100 ML ONE ×2 (05:07→15:25)
[2020-07-16] MEDS ORDERED: Potassium Chloride 20 MEQ TAB PO SCH (05:15)
[2020-07-16 06:44] LABS: Actual Bicarbonate (HCO3a) 26.8 mEq/L (22-28); Base Excess (BEa) 4.7 mEq/L (-2.0 to +3.0); CO2 Tension 31.8 mmHg (35.0-45.0); Calcium, Ionized (arterial) 1.24 mmol/L (1.12-1.30); Carboxyhemoglobin (COHb) 0.2 gm% (0.0-3.0); Hemoglobin (Hb) 12.2 g/dL (14.0-18.0); Potassium - ABG Lab 3.49 mmol/L (3.70-5.30); pH, Arterial 7.54 (7.35-7.45)
[2020-07-16 06:54] LABS: O2 Tension (PaO2), arterial 55.9 mmHg (> 80.0); Puncture Site RRA
[2020-07-16] MEDS: Hydroxyurea 500 MG CAP PO SCH (08:29)
[2020-07-16] MEDS: Metoprolol Tartrate 25 MG TAB PO SCH ×2 (08:30→22:13)
[2020-07-16] MEDS: Zinc Sulfate 220 MG CAP PO SCH (08:30)
[2020-07-16] MEDS: Thiamine 100 MG TAB PO SCH ×2 (08:30→22:20)
[2020-07-16] MEDS: Enoxaparin Sodium 60 MG/0.6 ML SYRINGE SC SCH (08:31)
[2020-07-16] MEDS: Colchicine 0.6 MG TAB PO SCH (08:32)
[2020-07-16] MEDS: Pantoprazole 40 MG GRANULES PACKET PER TUBE SCH (08:32)
[2020-07-16] MEDS: Haloperidol Lactate 5 MG/ML VIAL IM SCH ×2 (09:41→10:13)
[2020-07-16] MEDS: NPH, Human Insulin Isophane 300 UNIT/3 ML VIAL SC SCH ×2 (09:42→22:30)
[2020-07-16] MEDS ORDERED: Ziprasidone 20 MG VIAL IM SCH (10:00)
[2020-07-16] MEDS ORDERED: Sterile Water 10 ML VIAL FS SCH (10:00)
[2020-07-16] MEDS: methylPREDNISolone Sod Succ/PF 125 MG in Sodium Chloride 0.9% 250 ML 250 ML IVPB SCH (22:11)
[2020-07-16] MEDS: Potassium Chloride 20 MEQ TAB PO SCH (22:13)
[2020-07-16] MEDS: Ziprasidone 20 MG VIAL IM SCH (22:13)
[2020-07-16] MEDS: Sterile Water 10 ML VIAL FS SCH (22:16)
[2020-07-17] MEDS: Lorazepam 1 MG TAB PER TUBE SCH ×6 (01:57→22:12)
[2020-07-17] MEDS: Albuterol 200 PUFF (6.7GM INHALER) INH SCH ×6 (02:09→22:56)
[2020-07-17] MEDS ORDERED: Fentanyl CADD 100 ML ONE ×2 (03:20→16:46)
[2020-07-17] MEDS ORDERED: Sterile Water 10 ML ONE (03:41)
[2020-07-17] MEDS: Vecuronium 10 MG VIAL IV PRN (03:43)
[2020-07-17] MEDS: Piperacillin/Tazobactam 3.375 GM in Sodium Chloride 0.9% 100 ML IVPB SCH ×4 (03:56→22:13)
[2020-07-17 04:25] LABS: Hemoglobin 11.7 g/dL (14.0-18.0); Mean Corpuscular HGB CONC 32.5 g/dL (32.0-36.0); Mean Corpuscular Hemoglobin 29.4 pg (27.0-31.0); Mean Corpuscular Volume 90.6 fL (78.0-98.0); Mean Platelet Volume 7.5 fL (7.4-10.4); Platelet Count 145 thou/uL (130-400); RBC Distribution Width 13.5 % (11.5-14.5); Red Blood Cell (RBC) Count 3.99 mill/uL (4.70-6.10)
[2020-07-17 04:36] LABS: ALT (SGPT) 37 U/L (8-55); AST (SGOT) 30 U/L (5-34); Albumin 3.8 g/dL (3.4-4.8); Alkaline Phosphatase 97 U/L (40-110); Anion Gap 16 mmol/L (10-20); BUN (Urea Nitrogen) 85 mg/dL (8.4-25.7); Bilirubin, Total 1.6 mg/dL (0.2-1.2); Calc. Creatinine Clearance 0 mL/min (70-130); Calcium 11.1 mg/dL (7.8-10.44); Carbon Dioxide 31 mmol/L (23-31); Chloride 102 mmol/L (98-107); Globulin 2.1 g/dL (2.4-3.5); Glucose 142 mg/dL (80-115); Potassium 4.1 mmol/L (3.5-5.1); Protein, Total 5.9 g/dL (5.8-8.1); Sodium 145 mmol/L (136-145)
[2020-07-17 05:32] LABS: Eosinophils 1 % (0-10); Lymphocytes 78 % (21-51); MDiff Complete? YES; Neutrophil 21 % (42-75); Platelet Morphology Comment Appears Adequate
[2020-07-17 07:20] LABS: Actual Bicarbonate (HCO3a) 29.1 mEq/L (22-28); Base Excess (BEa) 5.4 mEq/L (-2.0 to +3.0); Calcium, Ionized (arterial) 1.34 mmol/L (1.12-1.30); Carboxyhemoglobin (COHb) 0.4 gm% (0.0-3.0); Potassium - ABG Lab 3.92 mmol/L (3.70-5.30); pH, Arterial 7.49 (7.35-7.45)
[2020-07-17 08:16] LABS: O2 Tension (PaO2), arterial 53.4 mmHg (> 80.0)
[2020-07-17 08:17] LABS: Puncture Site LRA
[2020-07-17] MEDS: Furosemide 100 MG in Sodium Chloride 0.9% 90 ML IVPB SCH (08:24)
[2020-07-17] MEDS: Sterile Water 10 ML VIAL FS SCH ×2 (08:36→22:13)
[2020-07-17] MEDS: Ziprasidone 20 MG VIAL IM SCH ×2 (08:36→22:13)
[2020-07-17] MEDS: Hydroxyurea 500 MG CAP PO SCH (08:37)
[2020-07-17] MEDS: Potassium Chloride 20 MEQ TAB PO SCH ×2 (08:37→22:13)
[2020-07-17] MEDS: Zinc Sulfate 220 MG CAP PO SCH (08:37)
[2020-07-17] MEDS: Enoxaparin Sodium 60 MG/0.6 ML SYRINGE SC SCH (08:37)
[2020-07-17] MEDS: Thiamine 100 MG TAB PO SCH ×2 (08:38→22:13)
[2020-07-17] MEDS: Metoprolol Tartrate 25 MG TAB PO SCH ×2 (08:38→22:14)
[2020-07-17] MEDS: Pantoprazole 40 MG GRANULES PACKET PER TUBE SCH (08:38)
[2020-07-17] MEDS: Colchicine 0.6 MG TAB PO SCH (08:38)
[2020-07-17] MEDS: NPH, Human Insulin Isophane 300 UNIT/3 ML VIAL SC SCH ×2 (09:07→22:14)
[2020-07-17] MEDS: methylPREDNISolone Sod Succ/PF 125 MG in Sodium Chloride 0.9% 250 ML 250 ML IVPB SCH (22:12)
[2020-07-18] MEDS: Lorazepam 1 MG TAB PER TUBE SCH ×6 (01:01→21:51)
[2020-07-18] MEDS: Albuterol 200 PUFF (6.7GM INHALER) INH SCH ×6 (01:41→23:04)
[2020-07-18] MEDS ORDERED: Fentanyl CADD 100 ML ONE ×3 (05:59→20:26)
[2020-07-18 06:03] LABS: Hemoglobin 11.4 g/dL (14.0-18.0); Mean Corpuscular Hemoglobin 29.4 pg (27.0-31.0); Mean Corpuscular Volume 91.8 fL (78.0-98.0); Platelet Count 156 thou/uL (130-400); RBC Distribution Width 13.2 % (11.5-14.5); Red Blood Cell (RBC) Count 3.88 mill/uL (4.70-6.10)
[2020-07-18 06:21] LABS: Lymphocytes 80 % (21-51); MDiff Complete? YES; Monocytes 4 % (0-10); Neutrophil 16 % (42-75); Platelet Morphology Comment Appears Adequate
[2020-07-18 06:22] LABS: ALT (SGPT) 48 U/L (8-55); AST (SGOT) 35 U/L (5-34); Albumin 3.8 g/dL (3.4-4.8); Alkaline Phosphatase 92 U/L (40-110); Anion Gap 16 mmol/L (10-20); BUN (Urea Nitrogen) 94 mg/dL (8.4-25.7); Bilirubin, Total 1.4 mg/dL (0.2-1.2); Calc. Creatinine Clearance 67 mL/min (70-130); Calcium 11.1 mg/dL (7.8-10.44); Carbon Dioxide 31 mmol/L (23-31); Chloride 107 mmol/L (98-107); Globulin 2.1 g/dL (2.4-3.5); Glucose 140 mg/dL (80-115); Protein, Total 5.9 g/dL (5.8-8.1); Sodium 150 mmol/L (136-145)
[2020-07-18 07:31] LABS: Base Excess (BEa) 5.7 mEq/L (-2.0 to +3.0); CO2 Tension 42.8 mmHg (35.0-45.0); Calcium, Ionized (arterial) 1.44 mmol/L (1.12-1.30); Carboxyhemoglobin (COHb) 0.3 gm% (0.0-3.0); Hemoglobin (Hb) 11.1 g/dL (14.0-18.0); O2 Tension (PaO2), arterial 75.5 mmHg (> 80.0); Potassium - ABG Lab 4.07 mmol/L (3.70-5.30); pH, Arterial 7.46 (7.35-7.45)
[2020-07-18 08:33] LABS: Puncture Site LRA
[2020-07-18] MEDS: Enoxaparin Sodium 60 MG/0.6 ML SYRINGE SC SCH (09:15)
[2020-07-18] MEDS: Hydroxyurea 500 MG CAP PO SCH (09:15)
[2020-07-18] MEDS: Zinc Sulfate 220 MG CAP PO SCH (09:15)
[2020-07-18] MEDS: Thiamine 100 MG TAB PO SCH ×2 (09:16→21:51)
[2020-07-18] MEDS: Potassium Chloride 20 MEQ TAB PO SCH (09:16)
[2020-07-18] MEDS: Metoprolol Tartrate 25 MG TAB PO SCH ×2 (09:16→21:51)
[2020-07-18] MEDS: Colchicine 0.6 MG TAB PO SCH (09:16)
[2020-07-18] MEDS: Pantoprazole 40 MG GRANULES PACKET PER TUBE SCH (09:17)
[2020-07-18] MEDS: NPH, Human Insulin Isophane 300 UNIT/3 ML VIAL SC SCH ×2 (09:18→21:51)
[2020-07-18] MEDS: Ziprasidone 20 MG VIAL IM SCH ×2 (10:30→21:51)
[2020-07-18] MEDS: Sterile Water 10 ML VIAL FS SCH ×2 (10:31→21:52)
[2020-07-18] MEDS ORDERED: Fentanyl CADD 0 ML ONE (19:27)
[2020-07-18] MEDS: Fentanyl CADD 100 ML IV SCH (20:34)
[2020-07-19] MEDS: Lorazepam 1 MG TAB PER TUBE SCH ×6 (00:44→20:25)
[2020-07-19] MEDS: Albuterol 200 PUFF (6.7GM INHALER) INH SCH ×6 (01:53→22:10)
[2020-07-19] MEDS: methylPREDNISolone Sod Succ/PF 125 MG in Sodium Chloride 0.9% 250 ML 250 ML IVPB SCH (02:31)
[2020-07-19 04:34] LABS: Hemoglobin 9.7 g/dL (14.0-18.0); Mean Corpuscular HGB CONC 30.9 g/dL (32.0-36.0); Mean Corpuscular Hemoglobin 28.5 pg (27.0-31.0); Mean Corpuscular Volume 92.4 fL (78.0-98.0); Mean Platelet Volume 7.5 fL (7.4-10.4); Platelet Count 133 thou/uL (130-400); RBC Distribution Width 13.3 % (11.5-14.5); Red Blood Cell (RBC) Count 3.41 mill/uL (4.70-6.10)
[2020-07-19 04:40] LABS: ALT (SGPT) 54 U/L (8-55); AST (SGOT) 29 U/L (5-34); Albumin 3.5 g/dL (3.4-4.8); Alkaline Phosphatase 85 U/L (40-110); Anion Gap 12 mmol/L (10-20); BUN (Urea Nitrogen) 84 mg/dL (8.4-25.7); Calc. Creatinine Clearance 90 mL/min (70-130); Calcium 11.3 mg/dL (7.8-10.44); Carbon Dioxide 29 mmol/L (23-31); Chloride 113 mmol/L (98-107); Globulin 1.9 g/dL (2.4-3.5); Glucose 121 mg/dL (80-115); Protein, Total 5.4 g/dL (5.8-8.1); Sodium 150 mmol/L (136-145)
[2020-07-19 04:58] LABS: Lymphocytes 85 % (21-51); MDiff Complete? YES; Monocytes 1 % (0-10); Neutrophil 14 % (42-75); Platelet Morphology Comment Appears Adequate
[2020-07-19] MEDS: Metoprolol Tartrate 25 MG TAB PO SCH ×2 (10:11→20:25)
[2020-07-19] MEDS: Enoxaparin Sodium 60 MG/0.6 ML SYRINGE SC SCH (10:11)
[2020-07-19] MEDS: Pantoprazole 40 MG GRANULES PACKET PER TUBE SCH (10:11)
[2020-07-19] MEDS: Zinc Sulfate 220 MG CAP PO SCH (10:11)
[2020-07-19] MEDS: Hydroxyurea 500 MG CAP PO SCH (10:12)
[2020-07-19] MEDS: Thiamine 100 MG TAB PO SCH ×2 (10:12→20:25)
[2020-07-19] MEDS: NPH, Human Insulin Isophane 300 UNIT/3 ML VIAL SC SCH ×2 (10:12→20:25)
[2020-07-19] MEDS: Colchicine 0.6 MG TAB PO SCH (10:12)
[2020-07-19] MEDS: Sterile Water 10 ML VIAL FS SCH (10:13)
[2020-07-19] MEDS: Ziprasidone 20 MG VIAL IM SCH ×2 (10:15→20:24)
[2020-07-19] MEDS ORDERED: Fentanyl BOLUS 250 ML IVPB PRN (11:27)
[2020-07-19] MEDS: Sodium Chloride 0.45% 1,000 ML IV SCH (14:12)
[2020-07-19] MEDS ORDERED: Torsemide 20 MG TAB PER TUBE SCH (16:00)
[2020-07-19] MEDS ORDERED: Sterile Water 10 ML ONE (20:21)
[2020-07-19] MEDS ORDERED: Fentanyl CADD 100 ML ONE (21:20)
[2020-07-19] MEDS: Fentanyl CADD 100 ML IV SCH (21:23)
[2020-07-20] MEDS: Lorazepam 1 MG TAB PER TUBE SCH ×6 (01:15→20:54)
[2020-07-20] MEDS: methylPREDNISolone Sod Succ/PF 125 MG in Sodium Chloride 0.9% 250 ML 250 ML IVPB SCH (01:15)
[2020-07-20] MEDS: Albuterol 200 PUFF (6.7GM INHALER) INH SCH ×6 (02:08→22:30)
[2020-07-20 04:46] LABS: Hemoglobin 10.5 g/dL (14.0-18.0); Mean Corpuscular HGB CONC 32.6 g/dL (32.0-36.0); Mean Corpuscular Hemoglobin 29.9 pg (27.0-31.0); Mean Corpuscular Volume 91.8 fL (78.0-98.0); Mean Platelet Volume 7.7 fL (7.4-10.4); Platelet Count 144 thou/uL (130-400); RBC Distribution Width 13.3 % (11.5-14.5); Red Blood Cell (RBC) Count 3.49 mill/uL (4.70-6.10)
[2020-07-20 04:57] LABS: Magnesium 2.1 mg/dL (1.6-2.6); Phosphorus 2.6 mg/dL (2.3-4.7)
[2020-07-20 05:00] LABS: ALT (SGPT) 61 U/L (8-55); AST (SGOT) 34 U/L (5-34); Albumin 3.6 g/dL (3.4-4.8); Alkaline Phosphatase 89 U/L (40-110); Anion Gap 13 mmol/L (10-20); BUN (Urea Nitrogen) 81 mg/dL (8.4-25.7); Bilirubin, Total 1.4 mg/dL (0.2-1.2); Calc. Creatinine Clearance 93 mL/min (70-130); Calcium 10.9 mg/dL (7.8-10.44); Carbon Dioxide 29 mmol/L (23-31); Chloride 112 mmol/L (98-107); Glucose 123 mg/dL (80-115); Potassium 3.7 mmol/L (3.5-5.1); Protein, Total 5.6 g/dL (5.8-8.1); Sodium 150 mmol/L (136-145)
[2020-07-20 05:03] LABS: Hypochromia SLIGHT = 6-15 cells (100X) (0-5/hpf); Lymphocytes 72 % (21-51); MDiff Complete? YES; Monocytes 1 % (0-10); Neutrophil 27 % (42-75); Platelet Morphology Comment Appears Adequate
[2020-07-20 07:34] LABS: Actual Bicarbonate (HCO3a) 25.5 mEq/L (22-28); Base Excess (BEa) 2.9 mEq/L (-2.0 to +3.0); CO2 Tension 31.7 mmHg (35.0-45.0); Carboxyhemoglobin (COHb) 0.3 gm% (0.0-3.0); Hemoglobin (Hb) 10.1 g/dL (14.0-18.0); O2 Tension (PaO2), arterial 108.9 mmHg (> 80.0); pH, Arterial 7.52 (7.35-7.45)
[2020-07-20 07:48] LABS: Puncture Site LRA
[2020-07-20 07:49] LABS: ALV-art Gradient 172.325 mmHg (0-20)
[2020-07-20] MEDS ORDERED: Torsemide 20 MG TAB PER TUBE SCH (09:00)
[2020-07-20] MEDS ORDERED: Fentanyl CADD 100 ML ONE (09:25)
[2020-07-20] MEDS: Enoxaparin Sodium 60 MG/0.6 ML SYRINGE SC SCH (09:27)
[2020-07-20] MEDS: Metoprolol Tartrate 25 MG TAB PO SCH ×2 (09:28→20:54)
[2020-07-20] MEDS: Zinc Sulfate 220 MG CAP PO SCH (09:28)
[2020-07-20] MEDS: Fentanyl CADD 100 ML IV SCH (09:28)
[2020-07-20] MEDS: Colchicine 0.6 MG TAB PO SCH (09:28)
[2020-07-20] MEDS: Pantoprazole 40 MG GRANULES PACKET PER TUBE SCH (09:28)
[2020-07-20] MEDS: Hydroxyurea 500 MG CAP PO SCH (09:29)
[2020-07-20] MEDS: NPH, Human Insulin Isophane 300 UNIT/3 ML VIAL SC SCH ×2 (09:29→20:57)
[2020-07-20] MEDS: Thiamine 100 MG TAB PO SCH ×2 (09:32→20:54)
[2020-07-20] MEDS: Ziprasidone 20 MG VIAL IM SCH (10:47)
[2020-07-20] MEDS: Haloperidol Lactate 5 MG/ML VIAL IM SCH ×3 (11:44→22:59)
[2020-07-21] MEDS: Lorazepam 1 MG TAB PER TUBE SCH ×6 (00:12→21:15)
[2020-07-21] MEDS: Albuterol 200 PUFF (6.7GM INHALER) INH SCH ×6 (00:50→22:14)
[2020-07-21 05:53] LABS: ALT (SGPT) 74 U/L (8-55); AST (SGOT) 41 U/L (5-34); Albumin 3.3 g/dL (3.4-4.8); Alkaline Phosphatase 79 U/L (40-110); Anion Gap 12 mmol/L (10-20); BUN (Urea Nitrogen) 83 mg/dL (8.4-25.7); Bilirubin, Total 1.1 mg/dL (0.2-1.2); Calc. Creatinine Clearance 95 mL/min (70-130); Calcium 10.6 mg/dL (7.8-10.44); Carbon Dioxide 30 mmol/L (23-31); Chloride 110 mmol/L (98-107); Eosinophils 1 % (0-10); Globulin 1.8 g/dL (2.4-3.5); Glucose 99 mg/dL (80-115); Lymphocytes 92 % (21-51); MDiff Complete? YES; Neutrophil 7 % (42-75); Platelet Morphology Comment Appears Adequate; Potassium 3.1 mmol/L (3.5-5.1); Protein, Total 5.1 g/dL (5.8-8.1); Sodium 149 mmol/L (136-145)
[2020-07-21] MEDS ORDERED: Fentanyl CADD 100 ML ONE (06:01)
[2020-07-21] MEDS: Haloperidol Lactate 5 MG/ML VIAL IM SCH ×3 (06:04→17:40)
[2020-07-21] MEDS: Fentanyl CADD 100 ML IV SCH (06:04)
[2020-07-21 06:15] LABS: Hemoglobin 8.8 g/dL (14.0-18.0); Mean Corpuscular HGB CONC 30.4 g/dL (32.0-36.0); Mean Corpuscular Volume 92.1 fL (78.0-98.0); Mean Platelet Volume 8.1 fL (7.4-10.4); Platelet Count 132 thou/uL (130-400); RBC Distribution Width 13.4 % (11.5-14.5); Red Blood Cell (RBC) Count 3.15 mill/uL (4.70-6.10); White Blood Cell (WBC) Count 86.5 thou/uL (4.8-10.8)
[2020-07-21 07:21] LABS: Actual Bicarbonate (HCO3a) 28.4 mEq/L (22-28); Base Excess (BEa) 4.3 mEq/L (-2.0 to +3.0); CO2 Tension 40.7 mmHg (35.0-45.0); Calcium, Ionized (arterial) 1.41 mmol/L (1.12-1.30); Carboxyhemoglobin (COHb) 0.3 gm% (0.0-3.0); Hemoglobin (Hb) 10.5 g/dL (14.0-18.0); O2 Tension (PaO2), arterial 80.5 mmHg (> 80.0); Potassium - ABG Lab 3.24 mmol/L (3.70-5.30); pH, Arterial 7.46 (7.35-7.45)
[2020-07-21] MEDS: Colchicine 0.6 MG TAB PO SCH (07:33)
[2020-07-21] MEDS: Potassium Chloride 20 MEQ TAB PER TUBE SCH ×2 (07:34→11:56)
[2020-07-21] MEDS: Metoprolol Tartrate 25 MG TAB PO SCH ×2 (07:34→21:15)
[2020-07-21] MEDS: Torsemide 20 MG TAB PER TUBE SCH (07:34)
[2020-07-21] MEDS: methylPREDNISolone Sod Succ 40 MG VIAL IVP SCH (07:35)
[2020-07-21] MEDS: Zinc Sulfate 220 MG CAP PO SCH (07:35)
[2020-07-21] MEDS: Spironolactone 25 MG TAB PER TUBE SCH (07:35)
[2020-07-21] MEDS: Pantoprazole 40 MG GRANULES PACKET PER TUBE SCH (07:35)
[2020-07-21] MEDS: Thiamine 100 MG TAB PO SCH ×2 (07:35→21:15)
[2020-07-21 07:44] LABS: ALV-art Gradient 118.175 mmHg (0-20); Puncture Site LRA
[2020-07-21] MEDS ORDERED: Enoxaparin Sodium 60 MG/0.6 ML SYRINGE SC SCH (09:00)
[2020-07-21] MEDS: NPH, Human Insulin Isophane 300 UNIT/3 ML VIAL SC SCH ×2 (10:09→21:14)
[2020-07-21] MEDS: Hydroxyurea 500 MG CAP PO SCH (11:25)
[2020-07-22] MEDS: Haloperidol Lactate 5 MG/ML VIAL IM SCH ×4 (00:26→17:31)
[2020-07-22] MEDS: Lorazepam 1 MG TAB PER TUBE SCH ×6 (00:26→20:53)
[2020-07-22] MEDS: Albuterol 200 PUFF (6.7GM INHALER) INH SCH ×6 (00:56→21:58)
[2020-07-22 04:04] LABS: Hemoglobin 9.2 g/dL (14.0-18.0); Mean Corpuscular HGB CONC 32.9 g/dL (32.0-36.0); Mean Corpuscular Hemoglobin 29.8 pg (27.0-31.0); Mean Corpuscular Volume 90.6 fL (78.0-98.0); Mean Platelet Volume 7.6 fL (7.4-10.4); Platelet Count 120 thou/uL (130-400); RBC Distribution Width 13.7 % (11.5-14.5); Red Blood Cell (RBC) Count 3.08 mill/uL (4.70-6.10); White Blood Cell (WBC) Count 91.2 thou/uL (4.8-10.8)
[2020-07-22 04:17] LABS: Phosphorus 2.9 mg/dL (2.3-4.7); Uric Acid 3.8 mg/dL (3.5-7.2)
[2020-07-22 04:22] LABS: ALT (SGPT) 63 U/L (8-55); AST (SGOT) 31 U/L (5-34); Albumin 3.3 g/dL (3.4-4.8); Alkaline Phosphatase 88 U/L (40-110); Anion Gap 13 mmol/L (10-20); BUN (Urea Nitrogen) 70 mg/dL (8.4-25.7); Bilirubin, Total 1.4 mg/dL (0.2-1.2); Calc. Creatinine Clearance 99 mL/min (70-130); Calcium 10.8 mg/dL (7.8-10.44); Carbon Dioxide 26 mmol/L (23-31); Chloride 109 mmol/L (98-107); Globulin 1.8 g/dL (2.4-3.5); Glucose 88 mg/dL (80-115); Magnesium 1.8 mg/dL (1.6-2.6); Potassium 3.2 mmol/L (3.5-5.1); Protein, Total 5.1 g/dL (5.8-8.1); Sodium 145 mmol/L (136-145)
[2020-07-22 04:27] LABS: Eosinophils 2 % (0-10); Lymphocytes 84 % (21-51); MDiff Complete? YES; Monocytes 3 % (0-10); Neutrophil 11 % (42-75); Platelet Morphology Comment Appears Decreased; RBC Morphology Normal
[2020-07-22] MEDS ORDERED: Fentanyl CADD 100 ML ONE (04:32)
[2020-07-22] MEDS ORDERED: Potassium Chloride 20 MEQ TAB PO SCH (06:15)
[2020-07-22] MEDS: Potassium Chloride 20 MEQ in Premix Bag 1 BAG IVPB SCH ×2 (06:39→07:59)
[2020-07-22] MEDS: Spironolactone 25 MG TAB PER TUBE SCH ×2 (08:23→08:25)
[2020-07-22] MEDS: Metoprolol Tartrate 25 MG TAB PO SCH ×2 (08:23→20:52)
[2020-07-22] MEDS: Pantoprazole 40 MG GRANULES PACKET PER TUBE SCH (08:25)
[2020-07-22] MEDS: methylPREDNISolone Sod Succ 40 MG VIAL IVP SCH (08:25)
[2020-07-22] MEDS: Thiamine 100 MG TAB PO SCH ×2 (08:25→20:53)
[2020-07-22] MEDS: Colchicine 0.6 MG TAB PO SCH (08:26)
[2020-07-22] MEDS: Hydroxyurea 500 MG CAP PO SCH (08:27)
[2020-07-22] MEDS: Torsemide 20 MG TAB PER TUBE SCH (08:27)
[2020-07-22] MEDS: NPH, Human Insulin Isophane 300 UNIT/3 ML VIAL SC SCH ×2 (08:27→20:52)
[2020-07-22] MEDS: Zinc Sulfate 220 MG CAP PO SCH (08:29)
[2020-07-22] MEDS ORDERED: Bupivacaine 0.25% HCL 30 ML VIAL ONE (11:54)
[2020-07-22] MEDS ORDERED: Lidocaine 1% w/Epinephrine 1:100K 20 ML VIAL ONE (11:54)
[2020-07-22] MEDS ORDERED: Fentanyl 100 MCG/2 ML VIAL ONE (11:59)
[2020-07-22] MEDS ORDERED: Midazolam HCl 2 mg/2 ml Vial ONE (11:59)
[2020-07-22] MEDS ORDERED: Dexamethasone 20 MG/5 ML VIAL ONE (12:30)
[2020-07-22] MEDS ORDERED: Rocuronium Bromide 10 MG/ML (10ML VIAL) ONE (12:30)
[2020-07-22] MEDS ORDERED: Ondansetron PF 4 MG/2 ML Vial ONE (12:30)
[2020-07-22] MEDS ORDERED: ePHEDrine Sulfate 50 MG/10 ML VIAL ONE (12:30)
[2020-07-22] MEDS ORDERED: PHENYLEPHRINE-NS 100 MCG/ML 10 ML SYRINGE ONE (12:30)
[2020-07-23] MEDS: Lorazepam 1 MG TAB PER TUBE SCH ×6 (00:53→21:09)
[2020-07-23] MEDS: Haloperidol Lactate 5 MG/ML VIAL IM SCH ×4 (00:53→17:35)
[2020-07-23] MEDS: Albuterol 200 PUFF (6.7GM INHALER) INH SCH ×6 (02:10→21:46)
[2020-07-23] MEDS ORDERED: Fentanyl CADD 100 ML ONE (02:24)
[2020-07-23 04:31] LABS: ALT (SGPT) 53 U/L (8-55); AST (SGOT) 30 U/L (5-34); Albumin 3.5 g/dL (3.4-4.8); Alkaline Phosphatase 98 U/L (40-110); Anion Gap 12 mmol/L (10-20); BUN (Urea Nitrogen) 53 mg/dL (8.4-25.7); Bilirubin, Total 1.6 mg/dL (0.2-1.2); Calc. Creatinine Clearance 98 mL/min (70-130); Calcium 10.6 mg/dL (7.8-10.44); Carbon Dioxide 25 mmol/L (23-31); Chloride 112 mmol/L (98-107); Glucose 93 mg/dL (80-115); Potassium 3.5 mmol/L (3.5-5.1); Protein, Total 5.5 g/dL (5.8-8.1); Sodium 145 mmol/L (136-145)
[2020-07-23 05:16] LABS: Hemoglobin 9.5 g/dL (14.0-18.0); Lymphocytes 88 % (21-51); MDiff Complete? YES; Mean Corpuscular HGB CONC 32.1 g/dL (32.0-36.0); Mean Corpuscular Hemoglobin 29.2 pg (27.0-31.0); Mean Corpuscular Volume 90.9 fL (78.0-98.0); Mean Platelet Volume 8.1 fL (7.4-10.4); Monocytes 1 % (0-10); Neutrophil 11 % (42-75); Platelet Count 124 thou/uL (130-400); RBC Distribution Width 13.9 % (11.5-14.5); Red Blood Cell (RBC) Count 3.25 mill/uL (4.70-6.10)
[2020-07-23 06:44] LABS: Actual Bicarbonate (HCO3a) 25.6 mEq/L (22-28); Base Excess (BEa) 1.9 mEq/L (-2.0 to +3.0); CO2 Tension 36.5 mmHg (35.0-45.0); Calcium, Ionized (arterial) 1.32 mmol/L (1.12-1.30); Carboxyhemoglobin (COHb) 0.3 gm% (0.0-3.0); Hemoglobin (Hb) 10.2 g/dL (14.0-18.0); O2 Tension (PaO2), arterial 69.7 mmHg (> 80.0); Potassium - ABG Lab 3.34 mmol/L (3.70-5.30); pH, Arterial 7.46 (7.35-7.45)
[2020-07-23 06:51] LABS: ALV-art Gradient 134.225 mmHg (0-20); Puncture Site RRA
[2020-07-23] MEDS: methylPREDNISolone Sod Succ 40 MG VIAL IVP SCH (08:22)
[2020-07-23] MEDS: Hydroxyurea 500 MG CAP PO SCH (08:22)
[2020-07-23] MEDS: Zinc Sulfate 220 MG CAP PO SCH (08:22)
[2020-07-23] MEDS: NPH, Human Insulin Isophane 300 UNIT/3 ML VIAL SC SCH ×2 (08:23→21:08)
[2020-07-23] MEDS: Spironolactone 25 MG TAB PER TUBE SCH (08:23)
[2020-07-23] MEDS: Thiamine 100 MG TAB PO SCH ×2 (08:23→21:09)
[2020-07-23] MEDS: Metoprolol Tartrate 25 MG TAB PO SCH ×2 (08:23→21:09)
[2020-07-23] MEDS: Colchicine 0.6 MG TAB PO SCH (08:23)
[2020-07-23] MEDS: Pantoprazole 40 MG GRANULES PACKET PER TUBE SCH (08:23)
[2020-07-23] MEDS: Torsemide 20 MG TAB PER TUBE SCH (08:41)
[2020-07-23] MEDS: Polyethylene Glycol 3350 17 GM Packet PER TUBE SCH (10:28)
[2020-07-23] MEDS ORDERED: Potassium Bicarbonate/Cit Ac 20 MEQ TAB PER TUBE SCH (11:30)
[2020-07-23] MEDS ORDERED: Enoxaparin Sodium 40 MG/0.4 ML SYRINGE SC SCH (11:30)
[2020-07-23] MEDS ORDERED: Electrolyte Replacement Protocol FS PRN (13:43)
[2020-07-24] MEDS: Lorazepam 1 MG TAB PER TUBE SCH ×6 (00:24→20:06)
[2020-07-24] MEDS: Haloperidol Lactate 5 MG/ML VIAL IM SCH ×4 (00:24→17:35)
[2020-07-24] MEDS: Albuterol 200 PUFF (6.7GM INHALER) INH SCH ×6 (02:03→21:28)
[2020-07-24 04:03] LABS: ALT (SGPT) 41 U/L (8-55); AST (SGOT) 22 U/L (5-34); Albumin 3.3 g/dL (3.4-4.8); Alkaline Phosphatase 98 U/L (40-110); Anion Gap 9 mmol/L (10-20); BUN (Urea Nitrogen) 48 mg/dL (8.4-25.7); Bilirubin, Total 1.2 mg/dL (0.2-1.2); Calc. Creatinine Clearance 102 mL/min (70-130); Calcium 9.9 mg/dL (7.8-10.44); Carbon Dioxide 28 mmol/L (23-31); Chloride 116 mmol/L (98-107); Glucose 120 mg/dL (80-115); Potassium 3.6 mmol/L (3.5-5.1); Protein, Total 5.3 g/dL (5.8-8.1); Sodium 149 mmol/L (136-145)
[2020-07-24 04:25] LABS: Hemoglobin 8.8 g/dL (14.0-18.0); Mean Corpuscular HGB CONC 31.9 g/dL (32.0-36.0); Mean Corpuscular Volume 91.1 fL (78.0-98.0); Mean Platelet Volume 8.1 fL (7.4-10.4); Platelet Count 117 thou/uL (130-400); RBC Distribution Width 13.8 % (11.5-14.5); Red Blood Cell (RBC) Count 3.05 mill/uL (4.70-6.10); White Blood Cell (WBC) Count 84.4 thou/uL (4.8-10.8)
[2020-07-24 07:23] LABS: Actual Bicarbonate (HCO3a) 24.5 mEq/L (22-28); Base Excess (BEa) 1.1 mEq/L (-2.0 to +3.0); CO2 Tension 33.9 mmHg (35.0-45.0); Calcium, Ionized (arterial) 1.35 mmol/L (1.12-1.30); Carboxyhemoglobin (COHb) 0.3 gm% (0.0-3.0); Hemoglobin (Hb) 9.8 g/dL (14.0-18.0); O2 Tension (PaO2), arterial 66.8 mmHg (> 80.0); Potassium - ABG Lab 3.32 mmol/L (3.70-5.30); pH, Arterial 7.48 (7.35-7.45)
[2020-07-24 07:29] LABS: Puncture Site RBA
[2020-07-24 07:30] LABS: ALV-art Gradient 140.375 mmHg (0-20)
[2020-07-24] MEDS: Enoxaparin Sodium 40 MG/0.4 ML SYRINGE SC SCH (08:45)
[2020-07-24] MEDS: methylPREDNISolone Sod Succ 40 MG VIAL IVP SCH (08:46)
[2020-07-24] MEDS: NPH, Human Insulin Isophane 300 UNIT/3 ML VIAL SC SCH ×2 (08:46→21:46)
[2020-07-24] MEDS: Hydroxyurea 500 MG CAP PO SCH (08:46)
[2020-07-24] MEDS: Metoprolol Tartrate 25 MG TAB PO SCH ×2 (08:47→20:06)
[2020-07-24] MEDS: Pantoprazole 40 MG GRANULES PACKET PER TUBE SCH (08:47)
[2020-07-24] MEDS: Thiamine 100 MG TAB PO SCH ×2 (08:47→20:06)
[2020-07-24] MEDS: Zinc Sulfate 220 MG CAP PO SCH (08:47)
[2020-07-24] MEDS: Polyethylene Glycol 3350 17 GM Packet PER TUBE SCH (08:48)
[2020-07-25] MEDS: Haloperidol Lactate 5 MG/ML VIAL IM SCH ×2 (00:49→05:31)
[2020-07-25] MEDS: Lorazepam 1 MG TAB PER TUBE SCH ×6 (00:49→21:39)
[2020-07-25] MEDS: Albuterol 200 PUFF (6.7GM INHALER) INH SCH ×6 (01:58→22:24)
[2020-07-25 05:05] LABS: ALT (SGPT) 40 U/L (8-55); AST (SGOT) 24 U/L (5-34); Albumin 3.4 g/dL (3.4-4.8); Alkaline Phosphatase 109 U/L (40-110); Anion Gap 13 mmol/L (10-20); BUN (Urea Nitrogen) 41 mg/dL (8.4-25.7); Bilirubin, Total 1.2 mg/dL (0.2-1.2); Calc. Creatinine Clearance 122 mL/min (70-130); Calcium 10.2 mg/dL (7.8-10.44); Carbon Dioxide 24 mmol/L (23-31); Chloride 113 mmol/L (98-107); Globulin 2.2 g/dL (2.4-3.5); Glucose 103 mg/dL (80-115); Protein, Total 5.6 g/dL (5.8-8.1); Sodium 147 mmol/L (136-145)
[2020-07-25 05:07] LABS: Hemoglobin 9.5 g/dL (14.0-18.0); Mean Corpuscular HGB CONC 32.8 g/dL (32.0-36.0); Mean Corpuscular Volume 91.4 fL (78.0-98.0); Mean Platelet Volume 8.3 fL (7.4-10.4); Platelet Count 127 thou/uL (130-400); RBC Distribution Width 14.5 % (11.5-14.5); Red Blood Cell (RBC) Count 3.18 mill/uL (4.70-6.10); White Blood Cell (WBC) Count 86.6 thou/uL (4.8-10.8)
[2020-07-25 05:12] LABS: Potassium 2.9 mmol/L (3.5-5.1)
[2020-07-25 05:19] LABS: Eosinophils 3 % (0-10); Lymphocytes 77 % (21-51); MDiff Complete? YES; Monocytes 2 % (0-10); Neutrophil 18 % (42-75); Platelet Morphology Comment Appears Decreased
[2020-07-25] MEDS ORDERED: Magnesium 2 GM/50 ML 2 GM in Premix Bag 1 BAG IVPB SCH (07:30)
[2020-07-25] MEDS: Hydroxyurea 500 MG CAP PO SCH (09:47)
[2020-07-25] MEDS: Metoprolol Tartrate 25 MG TAB PO SCH ×2 (09:47→21:39)
[2020-07-25] MEDS: Thiamine 100 MG TAB PO SCH ×2 (09:47→21:39)
[2020-07-25] MEDS: Zinc Sulfate 220 MG CAP PO SCH (09:47)
[2020-07-25] MEDS: Pantoprazole 40 MG GRANULES PACKET PER TUBE SCH (09:47)
[2020-07-25] MEDS: Enoxaparin Sodium 40 MG/0.4 ML SYRINGE SC SCH (09:48)
[2020-07-25] MEDS: Polyethylene Glycol 3350 17 GM Packet PER TUBE SCH (09:48)
[2020-07-25] MEDS: methylPREDNISolone Sod Succ 40 MG VIAL IVP SCH (09:48)
[2020-07-25] MEDS: Potassium Bicarbonate/Cit Ac 20 MEQ TAB PER TUBE SCH ×2 (09:52→15:24)
[2020-07-25] MEDS: Diphenoxylate HCl/Atropine Tablet PO PRN (15:24)
[2020-07-25 16:38] LABS: Anion Gap 15 mmol/L (10-20); BUN (Urea Nitrogen) 41 mg/dL (8.4-25.7); Calc. Creatinine Clearance 103 mL/min (70-130); Calcium 10.4 mg/dL (7.8-10.44); Carbon Dioxide 24 mmol/L (23-31); Chloride 111 mmol/L (98-107); Glucose 132 mg/dL (80-115); Potassium 4.8 mmol/L (3.5-5.1); Sodium 145 mmol/L (136-145)
[2020-07-26] MEDS: Lorazepam 1 MG TAB PER TUBE SCH ×6 (00:49→20:50)
[2020-07-26] MEDS: Albuterol 200 PUFF (6.7GM INHALER) INH SCH ×6 (01:50→22:14)
[2020-07-26 04:05] LABS: Anion Gap 11 mmol/L (10-20); BUN (Urea Nitrogen) 38 mg/dL (8.4-25.7); Calc. Creatinine Clearance 121 mL/min (70-130); Calcium 9.5 mg/dL (7.8-10.44); Carbon Dioxide 26 mmol/L (23-31); Chloride 110 mmol/L (98-107); Glucose 105 mg/dL (80-115); Potassium 3.4 mmol/L (3.5-5.1); Sodium 144 mmol/L (136-145)
[2020-07-26] MEDS ORDERED: Potassium Bicarbonate/Cit Ac 20 MEQ TAB PER TUBE SCH (06:45)
[2020-07-26] MEDS: methylPREDNISolone Sod Succ 40 MG VIAL IVP SCH (09:08)
[2020-07-26] MEDS: Thiamine 100 MG TAB PO SCH ×2 (09:09→20:51)
[2020-07-26] MEDS: Metoprolol Tartrate 25 MG TAB PO SCH ×2 (09:09→20:50)
[2020-07-26] MEDS: Zinc Sulfate 220 MG CAP PO SCH (09:09)
[2020-07-26] MEDS: Enoxaparin Sodium 40 MG/0.4 ML SYRINGE SC SCH (09:09)
[2020-07-26] MEDS: Pantoprazole 40 MG GRANULES PACKET PER TUBE SCH (09:09)
[2020-07-26] MEDS: Torsemide 20 MG TAB PER TUBE SCH (09:09)
[2020-07-26] MEDS: Hydroxyurea 500 MG CAP PO SCH (09:09)
[2020-07-26] MEDS ORDERED: Potassium Chloride 20 MEQ TAB PER TUBE SCH (10:00)
[2020-07-27] MEDS: Lorazepam 1 MG TAB PER TUBE SCH ×6 (01:20→20:13)
[2020-07-27] MEDS: Albuterol 200 PUFF (6.7GM INHALER) INH SCH ×6 (01:59→22:26)
[2020-07-27] MEDS: Diphenoxylate HCl/Atropine Tablet PO PRN (04:38)
[2020-07-27 04:47] LABS: Anion Gap 10 mmol/L (10-20); BUN (Urea Nitrogen) 39 mg/dL (8.4-25.7); Calc. Creatinine Clearance 131 mL/min (70-130); Calcium 9.8 mg/dL (7.8-10.44); Carbon Dioxide 24 mmol/L (23-31); Chloride 107 mmol/L (98-107); Glucose 99 mg/dL (80-115); Potassium 3.2 mmol/L (3.5-5.1); Sodium 138 mmol/L (136-145)
[2020-07-27] MEDS: Potassium Chloride 20 MEQ TAB PER TUBE SCH ×2 (07:12→13:10)
[2020-07-27] MEDS: Hydroxyurea 500 MG CAP PO SCH (09:07)
[2020-07-27] MEDS: Torsemide 20 MG TAB PER TUBE SCH (09:07)
[2020-07-27] MEDS: Enoxaparin Sodium 40 MG/0.4 ML SYRINGE SC SCH (09:07)
[2020-07-27] MEDS: methylPREDNISolone Sod Succ 40 MG VIAL IVP SCH (09:07)
[2020-07-27] MEDS: Thiamine 100 MG TAB PO SCH ×2 (09:08→20:13)
[2020-07-27] MEDS: Metoprolol Tartrate 25 MG TAB PO SCH ×2 (09:08→20:13)
[2020-07-27] MEDS: Pantoprazole 40 MG GRANULES PACKET PER TUBE SCH (09:08)
[2020-07-27] MEDS: Zinc Sulfate 220 MG CAP PO SCH (09:08)
[2020-07-27] MEDS ORDERED: Magnesium 2 GM/50 ML 2 GM in Premix Bag 1 BAG IVPB SCH (09:30)
[2020-07-27] MEDS ORDERED: Lorazepam 1 MG TAB ONE (13:00)
[2020-07-27] MEDS ORDERED: Potassium Chloride 20 MEQ TAB ONE (13:01)
[2020-07-28] MEDS ORDERED: Nystatin Powder 15 GM BOT TOP SCH (00:30)
[2020-07-28] MEDS: Lorazepam 1 MG TAB PER TUBE SCH ×6 (00:46→20:01)
[2020-07-28] MEDS: Albuterol 200 PUFF (6.7GM INHALER) INH SCH ×6 (03:07→22:11)
[2020-07-28 04:11] LABS: Anion Gap 12 mmol/L (10-20); BUN (Urea Nitrogen) 35 mg/dL (8.4-25.7); Calc. Creatinine Clearance 129 mL/min (70-130); Calcium 10.2 mg/dL (7.8-10.44); Carbon Dioxide 23 mmol/L (23-31); Chloride 108 mmol/L (98-107); Glucose 105 mg/dL (80-115); Magnesium 2.2 mg/dL (1.6-2.6); Potassium 3.6 mmol/L (3.5-5.1); Sodium 139 mmol/L (136-145)
[2020-07-28 05:29] LABS: Anisocytosis SLIGHT = 6-15 cells (100X) (0-5/hpf); Hemoglobin 8.9 g/dL (14.0-18.0); Lymphocytes 93 % (21-51); MDiff Complete? YES; Mean Corpuscular HGB CONC 32.2 g/dL (32.0-36.0); Mean Corpuscular Hemoglobin 29.3 pg (27.0-31.0); Mean Corpuscular Volume 91.1 fL (78.0-98.0); Mean Platelet Volume 7.7 fL (7.4-10.4); Monocytes 1 % (0-10); Neutrophil 6 % (42-75); Platelet Count 157 thou/uL (130-400); RBC Distribution Width 16.1 % (11.5-14.5); Red Blood Cell (RBC) Count 3.03 mill/uL (4.70-6.10); White Blood Cell (WBC) Count 65.4 thou/uL (4.8-10.8)
[2020-07-28] MEDS ORDERED: Potassium Chloride 20 MEQ TAB PER TUBE SCH (08:00)
[2020-07-28] MEDS ORDERED: Potassium Bicarbonate/Cit Ac 20 MEQ TAB PER TUBE SCH ×2 (08:00→08:45)
[2020-07-28] MEDS: Nystatin Powder 15 GM BOT TOP SCH ×2 (08:09→20:02)
[2020-07-28] MEDS: Metoprolol Tartrate 25 MG TAB PO SCH ×2 (08:09→20:01)
[2020-07-28] MEDS: Zinc Sulfate 220 MG CAP PO SCH (08:09)
[2020-07-28] MEDS: methylPREDNISolone Sod Succ 40 MG VIAL IVP SCH (08:10)
[2020-07-28] MEDS: Torsemide 20 MG TAB PER TUBE SCH (08:10)
[2020-07-28] MEDS: Pantoprazole 40 MG GRANULES PACKET PER TUBE SCH (08:10)
[2020-07-28] MEDS: Hydroxyurea 500 MG CAP PO SCH (08:10)
[2020-07-28] MEDS: Enoxaparin Sodium 40 MG/0.4 ML SYRINGE SC SCH (08:10)
[2020-07-28] MEDS: Thiamine 100 MG TAB PO SCH ×2 (08:10→20:01)
[2020-07-28 11:13] VITALS: BMI 32.5
[2020-07-28 12:39] VITALS: BP 166/79
[2020-07-29] MEDS: Lorazepam 1 MG TAB PER TUBE SCH ×4 (00:08→12:55)
[2020-07-29] MEDS: Albuterol 200 PUFF (6.7GM INHALER) INH SCH ×4 (02:08→14:25)
[2020-07-29 04:12] LABS: Anion Gap 14 mmol/L (10-20); BUN (Urea Nitrogen) 29 mg/dL (8.4-25.7); Calc. Creatinine Clearance 134 mL/min (70-130); Calcium 10.5 mg/dL (7.8-10.44); Carbon Dioxide 26 mmol/L (23-31); Chloride 104 mmol/L (98-107); Glucose 94 mg/dL (80-115); Potassium 3.7 mmol/L (3.5-5.1); Sodium 140 mmol/L (136-145)
[2020-07-29] MEDS ORDERED: Fentanyl BOLUS 250 ML IVPB PRN (06:27)
[2020-07-29] MEDS ORDERED: Fentanyl CADD 100 ML IV SCH (06:30)
[2020-07-29] MEDS: Enoxaparin Sodium 40 MG/0.4 ML SYRINGE SC SCH (08:10)
[2020-07-29] MEDS: Zinc Sulfate 220 MG CAP PO SCH (08:11)
[2020-07-29] MEDS: Pantoprazole 40 MG GRANULES PACKET PER TUBE SCH (08:11)
[2020-07-29] MEDS: Thiamine 100 MG TAB PO SCH (08:11)
[2020-07-29] MEDS: Metoprolol Tartrate 25 MG TAB PO SCH (08:11)
[2020-07-29] MEDS: methylPREDNISolone Sod Succ 40 MG VIAL IVP SCH (08:11)
[2020-07-29] MEDS: Nystatin Powder 15 GM BOT TOP SCH (08:12)
[2020-07-29] MEDS: Hydroxyurea 500 MG CAP PO SCH (09:27)
[2020-07-29] MEDS: HumaLOG 300 UNITS/3 ML VIAL SC PRN (10:20)
[2020-07-29 11:11] VITALS: TEMP 98.8
== END 2020-07-29 16:29 | DRG 3 ==
LOC: ERS 13:57 → CCU 15:35
PROVIDERS: ADMIT Family Medicine; ATTEND Family Medicine
PROC: 8E0ZXY6 Isolation (ICD-10-PCS; 2020-07-03)
PROC: 5A1955Z Respiratory Ventilation, Greater than 96 Consecutive Hours (ICD-10-PCS; principal; 2020-07-04)
PROC: 5A09357 Assistance with Respiratory Ventilation, Less than 24 Consecutive Hours, Continuous Positive Airway Pressure (ICD-10-PCS; 2020-07-04)
PROC: 0BH17EZ Insertion of Endotracheal Airway into Trachea, Via Natural or Artificial Opening (ICD-10-PCS; 2020-07-04)
PROC: 02HV33Z Insertion of Infusion Device into Superior Vena Cava, Percutaneous Approach (ICD-10-PCS; 2020-07-04)
PROC: B548ZZA Ultrasonography of Superior Vena Cava, Guidance (ICD-10-PCS; 2020-07-04)
PROC: 06HY33Z Insertion of Infusion Device into Lower Vein, Percutaneous Approach (ICD-10-PCS; 2020-07-11)
PROC: 5A1D70Z Performance of Urinary Filtration, Intermittent, Less than 6 Hours Per Day (ICD-10-PCS; 2020-07-11)
PROC: 0B110F4 Bypass Trachea to Cutaneous with Tracheostomy Device, Open Approach (ICD-10-PCS; 2020-07-22)
PROC: 0DH60UZ Insertion of Feeding Device into Stomach, Open Approach (ICD-10-PCS; 2020-07-22)
DX: A41.89 Other specified sepsis (principal); U07.1 COVID-19; J12.82 Pneumonia due to coronavirus disease 2019; J80 Acute respiratory distress syndrome; J15.9 Unspecified bacterial pneumonia; N17.0 Acute kidney failure with tubular necrosis; E88.3 Tumor lysis syndrome; I47.2 Ventricular tachycardia; C91.10 Chronic lymphocytic leukemia of B-cell type not having achieved remission; E87.1 Hypo-osmolality and hyponatremia; E87.0 Hyperosmolality and hypernatremia; E87.2 Acidosis; D80.1 Nonfamilial hypogammaglobulinemia; E46 Unspecified protein-calorie malnutrition; G93.40 Encephalopathy, unspecified; I10 Essential (primary) hypertension; K21.9 Gastro-esophageal reflux disease without esophagitis; M79.10 Myalgia, unspecified site; E87.5 Hyperkalemia; E66.9 Obesity, unspecified; J98.4 Other disorders of lung; R77.8 Other specified abnormalities of plasma proteins; I95.9 Hypotension, unspecified; I48.0 Paroxysmal atrial fibrillation; T45.1X5A Adverse effect of antineoplastic and immunosuppressive drugs, initial encounter; T50.4X5A Adverse effect of drugs affecting uric acid metabolism, initial encounter; D64.9 Anemia, unspecified; E83.39 Other disorders of phosphorus metabolism; E79.0 Hyperuricemia without signs of inflammatory arthritis and tophaceous disease; R73.9 Hyperglycemia, unspecified; E87.70 Fluid overload, unspecified; E87.6 Hypokalemia; E83.52 Hypercalcemia; F41.9 Anxiety disorder, unspecified; D69.6 Thrombocytopenia, unspecified; Z79.899 Other long term (current) drug therapy; Z78.1 Physical restraint status; Z99.89 Dependence on other enabling machines and devices; Z90.49 Acquired absence of other specified parts of digestive tract; Z98.890 Other specified postprocedural states; Z98.84 Bariatric surgery status; Z87.891 Personal history of nicotine dependence; Z68.32 Body mass index [BMI] 32.0-32.9, adult; Z92.21 Personal history of antineoplastic chemotherapy
CPT/HCPCS: 36415; 36416; 36600; 71045; 71275; 80048; 80053; 81001; 82306; 82550; 82553; 82570; 82728; 82805; 83036; 83605; 83615; 83735; 83880; 84100; 84145; 84156; 84300; 84443; 84484; 84540; 84550; 85007; 85025; 85027; 85060; 85379; 86140; 87040; 87086; 87103; 87340; 87449; 87899; 90935; 93005; 94002; 94003; 94760; 96365; 96375; C9113; G0257; J1100; J1630; J1642; J1644; J1650; J1815; J1940; J1956; J2060; J2250; J2270; J2405; J2543; J2704; J2920; J2930; J3010; J3262; J3370; J3475; J3480; J3486; J3490; J7050; P9045; P9047; S0020

== ENCOUNTER 2023-09-02 16:00 | Outpatient (CLI) | payer BC | END 2023-09-02 16:01 | disposition home or self-care (01) | LOC: SLEEPLAB 16:00 | PROVIDERS: ATTEND Nurse Practitioner Family | DX: G47.33 Obstructive sleep apnea (adult) (pediatric) (principal); E66.9 Obesity, unspecified; R06.83 Snoring; I11.0 Hypertensive heart disease with heart failure; I50.9 Heart failure, unspecified; G47.10 Hypersomnia, unspecified; G47.00 Insomnia, unspecified; I49.3 Ventricular premature depolarization; I49.1 Atrial premature depolarization; Z68.39 Body mass index [BMI] 39.0-39.9, adult | CPT/HCPCS: 95810 ==